=== PATIENT | male | born 1975 | race Caucasian/White ===

== ENCOUNTER 2021-01-29 10:40 | Emergency (ER) | payer OTHER, SELFPAY ==
--- NOTE | ~2021-01-29 | XR_ITS ---
EXAMINATION: XR chest 2V EXAM DATE: 01/29/2021 11:06 INDICATION: Midsternal left-sided chest pain. TECHNIQUE: Frontal and lateral projections of the chest obtained and reviewed. Comparison is made to prior examination from 2006. FINDINGS: The lungs are clear. There are no pleural effusions. The cardiomediastinal silhouette is within normal limits. There is no pneumothorax suspected. The bones and soft tissues are unremarkab le. IMPRESSION: No acute cardiopulmonary findings. Reviewed, dictated and finalized at location A.
--- NOTE | 2021-01-29 10:42 | ECG_ITS ---
Measurements Intervals [place] Rate: 78 P: 12 WA: 187 QRS: -18 QRSD: 145 T: 2 QT: 381 QTc: 436 Interpretive Statements SINUS RHYTHM RIGHT BUNDLE BRANCH BLOCK BASELINE ARTIFACT- V5-V6 ABNORMAL ECG Electronically Signed On 01-29-2021 10:48:26 CDT by Chris Martinez D.O.
[2021-01-29 11:02] LABS: Basophils Absolute Auto 0.1 K/mm3 (0.0-0.1); Basophils Percent Auto 0.7 % (0.2-1.2); Eosinophils Absolute Auto 0.1 K/mm3 (0-0.3); Hematocrit 49.2 % (42.0-52.0); Hemoglobin 16.2 g/dL (14.0-18.0); Immature Granulocyte Absolute 0.02 K/mm3 (0.00-0.031); Immature Granulocyte Percent A 0.3 % (0-0.5); Lymphocytes Absolute Auto 2.25 K/mm3 (0.9-3.2); Mean Corpuscular HGB Conc 32.9 g/dl (32-36); Mean Corpuscular Hemoglobin 29.2 pg (26-34); Mean Corpuscular Volume 88.6 fl (80-100); Mean Platelet Volume 10.2 fl (7.4-10.4); Monocytes Absolute Auto 0.7 K/mm3 (0.1-0.6); Monocytes Percent Auto 9.5 % (2.6-8.5); Neutrophils Absolute Auto 3.9 K/mm3 (1.3-6.7); Neutrophils Percent Auto 55.5 % (45.5-73.1); Platelet Count Result 236 k/mm3 (150-375); Red Blood Count 5.55 M/mm3 (4.6-6.20); Red Cell Distribution Width 12.9 % (11.5-14.5)
[2021-01-29 11:11] LABS: Anion Gap 10 mmol/L (8-16); Blood Urea Nitrogen 14 mg/dL (9-20); Calcium 9.6 mg/dL (8.4-10.2); Carbon Dioxide 27 mmol/L (22-30); Chloride 105 mmol/L (98-107); Estimated Glomerular Filt Rate > 60; Glucose 101 mg/dL (65-110); Potassium 4.2 mmol/L (3.4-5.0); Sodium 142 mmol/L (137-145)
[2021-01-29 11:14] LABS: INR 0.9; Prothrombin Time 12.2 Seconds (11.1-14.7)
[2021-01-29 11:15] LABS: Partial Thromboplastin Time 26.6 SECONDS (22.3-36.8)
[2021-01-29 11:22] LABS: Troponin I < 0.012 ng/mL (0.000-0.034)
[2021-01-29 11:54] VITALS: BP 165/89; PULSE 73; RESP 17; TEMP 36.2; O2SAT 100
--- NOTE | 2021-01-29 14:27 | ED.GENADULT ---
HPI - General Adult General Chief complaint: Chest Pain Stated complaint: Chest Pain Time Seen by Provider: 01/29/21 14:25 Source: patient Mode of arrival: ambulatory Limitations: no limitations History of Present Illness HPI narrative: Patient is here for evaluation of left-sided upper sternal and shoulder pain. He states that he has had this in the past his states that this seems to happen every time I try to work out and he did just recently start working out again. He takes some Tylenol or ibuprofen for the pain with minimal relief. He is not having any pain right now. There is no history of heart disease in him or anyone young in his family. There are some history with his mother and aunt that have valve disease. Onset (ago): week(s) Associated symptoms: denies other symptoms Related Data Home Medications Medication Instructions Recorded Confirmed ibuprofen 200 mg tablet 200 mg PO Q6H PRN 11/23/19 01/29/21 Allergies Allergy/AdvReac Type Severity Reaction Status Date / Time ciprofloxacin Allergy Unknown tendonitis Verified 01/29/21 14:50 Review of Systems Review of Systems: All systems reviewed & are unremarkable except as noted in HPI and below [facility] Past Medical History Medical History (Updated 01/29/21 @ 15:17 by Christianne Aleman PA-C) Diverticulitis (~12/2018) Gout Hypothyroid Kidney stone (~06/2018) Surgical History Surgical History History of nasal septoplasty (~2014) Family History Family History Mother Acute myocardial infarction Social History Social History (Updated 01/29/21 @ 15:13 by Christianne Aleman PA-C) Smoking status: Never smoker Alcohol intake: current Substance use: never Living arrangements: with family 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: occupation 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 Exam Const: General: no acute distress and alert Orientation/consciousness: patient oriented x3 Eyes: Conjunctivae: conjunctivae normal Pupils: Equal, round and reactive pupils present Resp: Effort & Inspection: normal respiratory effort Auscultation: clear to auscultation bilaterally Cardio: Rate: regular rate Rhythm: regular rhythm Other: no murmur GI: GI Palp: Yes Soft to palpation Skin: General skin exam: normal color (dry) Neuro: General: patient oriented x3 Extrem: General: normal to inspection Left upper extremity: normal to inspection, full ROM and shoulder/upper arm (mild click with rotation, no grinding.) normal ROM Psych: Mental Status: mental status grossly normal Course Course Emergency Course: Labs reviewed with patient, there is no cause for his chest pain identified here today. Recommend that he follow-up with his primary care physician for possible referral for a stress test if he is still concerned. Vital Signs Vital signs: Vital Signs Temperature 36.2 C L 01/29/21 11:54 Pulse Rate 73 01/29/21 11:54 Respiratory Rate 17 01/29/21 11:54 Blood Pressure 165/89 H 01/29/21 11:54 Pulse Oximetry 100 01/29/21 11:54 Temperature 36.2 C L 01/29/21 11:54 Pulse Rate 73 01/29/21 11:54 Respiratory Rate 17 01/29/21 11:54 Blood Pressure 165/89 H 01/29/21 11:54 Pulse Oximetry 01/29/21 11:54 Medical Decision Making Vital Signs Vital Signs: Vital Signs Temperature 36.2 C L 01/29/21 11:54 Pulse Rate 73 01/29/21 11:54 Respiratory Rate 17 01/29/21 11:54 Blood Pressure 165/89 H 01/29/21 11:54 Pulse Oximetry 100 01/29/21 11:54 Temperature 36.2 C L 01/29/21 11:54 Pulse Rate 73 01/29/21 11:54 Respiratory Rate 17 01/29/21 11:54 Blood Pressure 165/89 H 01/29/21 11:54 Pulse Oximetry 01/29/21 11:54 Lab Data Result diagrams: 01/29/21 10:53 01/29/21 10:53 Labs: Lab Results 01/29/21 01/29/21 01/29/21 Range/Units 10:53 10:53 10:5
[2021-01-29 14:44] VITALS: BP 130/87; PULSE 71; RESP 12; TEMP 36.6; O2SAT 94
[2021-01-29 14:51] VITALS: PULSE 70; O2SAT 96
[2021-01-29 14:53] LABS: Troponin I < 0.012 ng/mL (0.000-0.034)
[2021-01-29 15:38] VITALS: BP 148/87; PULSE 72; RESP 13; O2SAT 96
== END 2021-01-29 15:39 | disposition home or self-care (01) ==
PROVIDERS: Emergency Provider Emergency Medicine; PCP Family Medicine
DX: S46.912A Strain of unspecified muscle, fascia and tendon at shoulder and upper arm level, left arm, initial encounter (principal); M10.9 Gout, unspecified; E03.9 Hypothyroidism, unspecified; Z87.442 Personal history of urinary calculi; X58.XXXA Exposure to other specified factors, initial encounter
CPT/HCPCS: 36415; 71046; 80048; 84484; 85025; 85610; 85730; 93005; 99284

== ENCOUNTER 2021-06-19 13:54 | Emergency (ER) | payer OTHER, SELFPAY ==
[2021-06-19 13:59] VITALS: BP 136/86; PULSE 86; RESP 20; TEMP 36.3; O2SAT 100
--- NOTE | 2021-06-19 14:13 | ED.EAR ---
HPI - Ear Problem General Chief complaint: Ear Stated complaint: Left ear pain Time Seen by Provider: 06/19/21 14:18 Source: patient Mode of arrival: ambulatory Limitations: no limitations History of Present Illness HPI Narrative: 46-year-old male presented for complaint of left ear pain for 1 week. Endorses associated sinus pressure and congestion and swollen glands to the left neck. He denies associated dizziness, tinnitus, or decreased hearing, or photophobia. Has been taking Claritin and ibuprofen with minimal relief. He is vaccinated for COVID and denies sick contacts. MD Complaint: ear pain Related Data Home Medications Medication Instructions Recorded Confirmed ibuprofen 200 mg tablet 200 mg PO Q6H PRN 11/23/19 03/01/21 Allergies Allergy/AdvReac Type Severity Reaction Status Date / Time ciprofloxacin Allergy Unknown tendonitis Verified 03/01/21 08:57 Review of Systems Review of Systems: CONSTITUTIONAL: Denies malaise, chills, or fever. EYES: Denies visual changes, redness, or discharge. ENT: Reports ear pain, rhinorrhea, congestion, sinus pain CARDIOVASCULAR: Denies chest pain, palpitations, or edema. RESPIRATORY: Denies cough or dyspnea. GASTROINTESTINAL: Denies abdominal pain, nausea, vomiting, diarrhea SKIN: Denies rash or itching. MUSCULOSKELETAL: Denies myalgia. NEUROLOGIC: Denies headache. 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 There is no relevant family history pertinent to the presenting complaint Exam Narrative: GENERAL: Well-appearing, well-nourished, and in no acute distress. HEAD: Normocephalic EYES: PERRLA, conjunctivae clear ENT: Nares clear. Mucous membranes moist. TM pearly solis with dull light reflex bilaterally with fluid; no bulging or erythema, no tragal tenderness. Oropharynx not erythematous without lesions. Tonsils not enlarged and without exudate, no drooling, no hoarseness, no trismus, uvula midline. NECK: Supple. No lymphadenopathy CHEST: Clear to auscultation, breath sounds equal. No wheezing, rhonchi, rales, or stridor. No respiratory distress, speaks in full sentences. HEART: Regular rate and rhythm. No murmur heard. SKIN: Warm, dry, no rash. NEURO: Alert and oriented x3. PSYCH: Normal mood and affect Course Course Emergency Course: Patient is aware of diagnosis, understands and agrees to treatment plan. Abx for worsening sx if pt cannot be seen by pcp timely. Anticipatory guidance given. Patient agrees to follow-up as directed and is aware of reasons to seek care at the emergency department. Portions of this record may have been created with voice recognition software Level of Care: Express Care Visit Vital Signs Vital signs: Vital Signs Temperature 97.4 F L 06/19/21 13:59 Pulse Rate 86 06/19/21 13:59 Respiratory Rate 20 06/19/21 13:59 Blood Pressure 136/86 06/19/21 13:59 Pulse Oximetry 100 06/19/21 13:59 Temperature 97.4 F L 06/19/21 13:59 Pulse Rate 86 06/19/21 13:59 Respiratory Rate 20 06/19/21 13:59 Blood Pressure 136/86 06/19/21 13:59 Pulse Oximetry 100 06/19/21 13:59 Reviewed Medical Decision Making MDM Narrative Medical decision chrissie
== END 2021-06-19 14:27 | disposition home or self-care (01) ==
PROVIDERS: Emergency Provider Nurse Practitioner Family; PCP Family Medicine
DX: H92.02 Otalgia, left ear (principal); E78.5 Hyperlipidemia, unspecified; E03.9 Hypothyroidism, unspecified; M10.9 Gout, unspecified
CPT/HCPCS: 99213; G0463

== ENCOUNTER 2022-01-20 15:15 | Emergency (ER) | payer OTHER, SELFPAY ==
--- NOTE | ~2022-01-20 | XR_ITS ---
EXAM: XR abdomen/kub 1V DATE: 01/20/2022 18:05 HISTORY: nephrolithiasis . COMPARISON: CT abdomen and pelvis, same date. FINDINGS: Clear lung bases. Normal bowel gas pattern. No organomegaly. Redemonstration of the 12 mm right UPJ and 10 mm right proximal ureteral stones, unchanged given interval difference in technique. Multiple bilateral nephroliths. Contrast in the collecting system. Regional bones and soft tissues n ormal for age. IMPRESSION: Stable right ureteral stones. Bilateral nephrolithiasis, heavy stone burden. Reviewed, dictated and finalized at location K. IMPRESSION: Stable right ureteral stones. Bilateral nephrolithiasis, heavy ston e burden.
--- NOTE | ~2022-01-20 | CT_ITS ---
EXAMINATION: CT abdomen pelvis w con DATE: 01/20/2022 16:08 INDICATION: RLQ pain TECHNIQUE: Computed tomography (CT) of the abdomen and pelvis was performed with 100 mL Omnipaque-350 intravenous contrast. Automated exposure control and iterative reconstruction technique were employe d. The dose-length product was 1708.42 mGy-cm. COMPARISON: 12/17/2018. FINDINGS: Lower thorax: Unremarkable Liver: Normal. Biliary/Gallbladder: Gallbladder is normal. No bile duct dilation. Pancreas: No mass or duct dilation. Fatty infiltrated. Spleen: Normal. Adrenals:No mass. Kidneys: 7 x 9 mm right UPJ stone. 6 x 8 mm right proximal ureteral stone. Mild right pelviectasis an d caliectasis, with mild inflammatory stranding. Multiple bilateral nonobstructive renal calculi. No suspicious renal mass. GI tract: No small or large bowel dilation. Normal appendix. Diverticulosis without diverticulitis. Mesentery/Peritoneum: No ascites, mass, or free air. Retroperitoneum: No mass. Pelvis: Pelvic organs are within normal limits. Soft Tissues: Soft tissues and body wall unremarkable. Bones: No acute osseous finding. IMPRESSION: 7 x 9 right UPJ and 6 x 8 right proximal ureteral stones causing mild right obstructive uropathy. Reviewed, dictated and finalized at location K. IMPRESSION: 7 x 9 right UPJ and 6 x 8 right proximal ureteral stones causing mild right obs tructive uropathy.
[2022-01-20 15:20] VITALS: BP 154/101; PULSE 75; RESP 16; TEMP 36.7; O2SAT 97
--- NOTE | 2022-01-20 15:27 | ED.ABDPAIN ---
HPI - Abdominal Pain General Chief Complaint: Abdominal Pain Stated Complaint: ABD PAIN Time Seen by Provider: 01/20/22 15:27 History of Present Illness HPI narrative: Patient is a 46-year-old male with a history of gout, hypothyroidism presenting with abdominal pain. Patient states that he has had generalized abdominal discomfort for the last week associated with constipation. He called his PCP who recommended stool softeners. States that this helped and he was able to have a bowel movement yesterday. Around the same time he developed right lower quadrant pain that has continued. States he has been nauseated with decreased appetite. No vomiting or diarrhea. Endorses some discomfort with urination. Denies headache, chest pain, shortness of breath, cough, back pain, leg swelling. Related Data Home Medications Medication Instructions Recorded Confirmed ibuprofen 200 mg tablet (Advil) 200 mg PO Q6H PRN 11/23/19 01/15/22 Allergies Allergy/AdvReac Type Severity Reaction Status Date / Time No Known Allergies Allergy Verified 01/20/22 15:15 Review of Systems Review of Systems: All systems reviewed & are unremarkable except as noted in HPI and below PMFSH Past Medical History Medical History Diverticulitis (~12/2018) Dyslipidemia Gout Hypothyroid Kidney stone (~06/2018) Surgical History Surgical History History of nasal septoplasty (~2014) Family History Family History Mother Acute myocardial infarction Social History Social History Smoking status: Never smoker Alcohol intake: current Substance use: never Substance use type: does not use 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 HEAD: Normocephalic, atraumatic. EYES: PERRLA and EOMI. ENT: Nares clear, no rhinorrhea or epistaxis. Mucous membranes moist. NECK: Supple. CHEST: Clear to auscultation. No respiratory distress. HEART: Regular rate and rhythm. No murmur heard. Normal peripheral pulses. ABDOMEN: Soft, +tender RLQ, nondistended, normal active bowel sounds. EXTREMITIES: Normal range of motion. No edema. SKIN: Warm, dry, no rash. NEURO: No focal deficits. Alert and oriented x3. PSYCH: Normal mood and affect. Course Vital Signs Vital signs: Vital Signs Temperature 98.1 F 01/20/22 15:20 Pulse Rate 75 01/20/22 15:20 Respiratory Rate 16 01/20/22 15:20 Blood Pressure 154/101 H 01/20/22 15:20 Pulse Oximetry 97 01/20/22 15:20 Oxygen Delivery Room Air 01/20/22 15:20 Temperature 98.1 F 01/20/22 15:20 Pulse Rate 62 01/20/22 19:27 Respiratory Rate 17 01/20/22 19:27 Blood Pressure 131/81 01/20/22 19:27 Pulse Oximetry 100 01/20/22 19:27 Oxygen Delivery Room Air 01/20/22 15:20 MDM - Abdominal Pain MDM Narrative Medical decision making narrative: Patient is a 46-year-old male with history as above presenting with right lower quadrant pain. Patient is hypertensive, his vitals are within normal limits. Exam remarkable for right lower quadrant tenderness. CT abdomen pelvis shows 2 right-sided ureteral stones. UA with blood but does not appear infected. I spoke with Dr. Patel with urology who recommends outpatient follow-up as long as the patient's symptoms are well controlled. Currently, the patient states that he feels well enough to go home. We will provide pain medicine and Zofran. Dr. Patel's office will call the patient tomorrow or Friday to schedule follow-up. Appropriate return precautions were given. Patient voiced understanding and is agreeable with plan. Discharged in stable
[2022-01-20 15:37] LABS: Basophils Absolute Auto 0.1 K/mm3 (0.0-0.1); Eosinophils Absolute Auto 0.2 K/mm3 (0-0.3); Eosinophils Percent Auto 2.3 % (0-4.4); Hematocrit 47.8 % (42.0-52.0); Hemoglobin 15.9 g/dL (14.0-18.0); Immature Granulocyte Absolute 0.02 K/mm3 (0.00-0.031); Immature Granulocyte Percent A 0.2 % (0-0.5); Lymphocytes Absolute Auto 2.53 K/mm3 (0.9-3.2); Lymphocytes Percent Auto 28.6 % (18.3-44.2); Mean Corpuscular HGB Conc 33.3 g/dl (32-36); Mean Corpuscular Hemoglobin 29.8 pg (26-34); Mean Corpuscular Volume 89.7 fl (80-100); Mean Platelet Volume 10.6 fl (7.4-10.4); Monocytes Absolute Auto 0.9 K/mm3 (0.1-0.6); Monocytes Percent Auto 10.2 % (2.6-8.5); Neutrophils Absolute Auto 5.1 K/mm3 (1.3-6.7); Neutrophils Percent Auto 57.7 % (45.5-73.1); Platelet Count Result 239 k/mm3 (150-375); Red Blood Count 5.33 M/mm3 (4.6-6.20); Red Cell Distribution Width 13.2 % (11.5-14.5); White Blood Count 8.9 K/mm3 (4.5-10.0)
[2022-01-20 15:43] LABS: Alanine Aminotransferase 31 U/L (6-50); Albumin Level 4.5 g/dL (3.5-5.1); Alkaline Phosphatase 77 U/L (38-126); Anion Gap 12 mmol/L (8-16); Aspartate Amino Transferase 34 U/L (17-59); Bilirubin,Total 1.2 mg/dL (0.2-1.3); Blood Urea Nitrogen 16 mg/dL (9-20); Calcium 9.2 mg/dL (8.4-10.2); Carbon Dioxide 26 mmol/L (22-30); Chloride 101 mmol/L (98-107); Estimated CRCL calculation 79 ml/min; Estimated Glomerular Filt Rate 51; Glucose 99 mg/dL (65-110); Lipase 209 U/L (23-300); Potassium 4.1 mmol/L (3.4-5.0); Sodium 139 mmol/L (137-145)
[2022-01-20] MEDS: ONDANSETRON INJ 4 MG/2 ML VIAL IV PUSH (16:14)
[2022-01-20] MEDS: SODIUM CHLORIDE 0.9% IV 1,000 ML 999 ML IV CONT (16:15)
[2022-01-20 17:11] LABS: Appearance Urine Clear (Clear); Bilirubin Urine Negative (Negative); Blood Urine 3+ (Negative); Color Urine Yellow (Yellow); Glucose Urine UA Negative (Negative); Ketones Urine Negative (Negative); Leukocyte Esterase Ur Trace LEU/UL (Negative); Nitrate Urine Negative (Negative); Protein Urine Negative (Negative); Specific Grav Ur <= 1.005 (1.001-1.035); Urobilinogen Urine 0.2 mg/dL (<2.0)
[2022-01-20 17:16] LABS: Add Urine Microscopic? YES; Mucus Urine Rare /lpf; WBC Urine 0-3 /hpf
[2022-01-20 19:27] VITALS: BP 131/81; PULSE 62; RESP 17; O2SAT 100
== END 2022-01-20 19:35 | disposition home or self-care (01) ==
PROVIDERS: Emergency Provider Emergency Medicine; PCP Family Medicine
DX: N13.9 Obstructive and reflux uropathy, unspecified (principal); N20.1 Calculus of ureter; E78.5 Hyperlipidemia, unspecified; E03.9 Hypothyroidism, unspecified; M10.9 Gout, unspecified; Z87.442 Personal history of urinary calculi
CPT/HCPCS: 36415; 74018; 74177; 80053; 81001; 83690; 85025; 96361; 96374; 99284; J2405; J7030; Q9967

== ENCOUNTER 2022-01-22 09:01 | Outpatient (CLI) | payer OTHER, SELFPAY ==
[2022-01-22 10:08] LABS: Prothrombin Time 13.1 Seconds (11.1-14.7)
[2022-01-22 10:09] LABS: Partial Thromboplastin Time 29.6 SECONDS (22.3-36.8)
== END 2022-01-22 09:02 | disposition home or self-care (01) ==
LOC: ANHSURGERY 09:09
PROVIDERS: PCP Family Medicine; Visit Provider Urology
DX: Z01.812 Encounter for preprocedural laboratory examination (principal); N20.0 Calculus of kidney
CPT/HCPCS: 36415; 85610; 85730; 87086

== ENCOUNTER 2022-01-25 00:45 | Day surgery (SDC) | payer OTHER, SELFPAY ==
[2022-01-21 13:15] VITALS: BMI 36.9
--- NOTE | 2022-01-21 13:23 | PC.NURSE ---
Report to the Outpatient Waiting Room, entrance under the green pavilion located off [facility], at time 12:00 on date 01/25/22. OR Time: 2:00. Time changes happen often and if your time is changed the preop area will call you the afternoon before. - You and your visitor will be asked to self-screen and do not enter if you have any COVID symptoms. - Only one visitor and NO children visitors are allowed at this time. - The patient visitor is requested to leave or wait in car when not with patient due to restrictions. - A mask is required within the hospital. Patients may have clear liquids (water, carbonated beverages, clear teas, apple juice) until 3 hours prior to surgery (11:00) with a maximum of 20 ounces. - No food from midnight until time of surgery Take the following medications with a SIP of water the morning of surgery: PAIN PILL IF NEEDED Medications to discontinue per physician: IBUPROFEN Date to take last dose: STOPPED 01/20/22 Please no make-up, nail bulgarian, hairspray, perfume, deodorant, or body powder the day of surgery. No jewelry (including any body piercings) or valuables the day of surgery, leave them at home. Please take a shower or bath the night before, or the morning of, surgery with an antibacterial soap. Wear comfortable, loose fitting clothing. - Jewelry must be removed prior to entering the operating room. Rings and piercings that are not removed may be cut off. - The hospital will not accept responsibility for valuables. - Please leave all valuables, including medications, at home the day of surgery. If you are going home after surgery, a licensed trailer truck driver must drive you home. - NO public transportation without another adult. - We recommend that an adult stay with you for 24 hours following discharge. - We also recommend that you do not drive, make important decision, drink alcoholic beverages, or take any drugs that were not prescribed by your health care provider for at least 24 hours after your discharge time. Follow any additional instructions given to you from your surgeon. If you or anyone in your household have experienced Covid symptoms in the past week, please notify your surgeon or the nurse liaison at the phone number below for possible testing. Telephone instructions given to PT - JACIEL HENAO and asked if any additional questions and then verbalized understanding. Patient advised to call surgeon office or pre surgery nurse liaison [phone] if any additional questions.
[2022-01-25] VITALS (7 sets, daily range): BP systolic 117–136; BP diastolic 71–90; PULSE 65–75; RESP 12–16; TEMP 36.3–36.4; O2SAT 97–100
--- NOTE | ~2022-01-25 | XR_ITS ---
EXAMINATION: XR abdomen/kub 1V DATE: 01/25/2022 10:25 INDICATION: Kidney stones. TECHNIQUE: A supine view of the abdomen on 2 radiographs was obtained. COMPARISON: CT abdomen and pelvis 01/20/2022 FINDINGS: There are stones in each kidney measuring up to 7 mm on the left. There are 2 stones in pro ximal right ureter measuring up to 6 x 8 mm. There are no dilated loops of bowel. IMPRESSION: 1. Stones in the kidneys and proximal right ureter. Reviewed, dictated and finalized at location A.
--- NOTE | 2022-01-25 06:27 | WPDHPUPDATE1 ---
History and Physical Update Update Date/Time: 01/25/22 06:27 History and Physical has been reviewed, including an updated exam of the patient. There are NO changes in the patient's condition. Risks, benefits, and alternatives have been discussed and questions answered. Patient agrees to proceed with procedure.
--- NOTE | 2022-01-25 09:02 | P.PNAN_ITS ---
Anes - Initial Pre Proc Eval Procedure: Operation Date: 01/25/22 13:00 Proposed Procedures p Right Extracorporeal Shock Wave Lithotripsy - Gerardo Lee MD Date/Time: 01/25/22 09:02 Surgeon: Gerardo Lee MD Pre Op Diagnosis: kidney stones Patient Data Age: 46 Gender: M Height: 1.85 m Weight: 127 kg Allergies Allergy/AdvReac Type Severity Reaction Status Date / Time No Known Allergies Allergy Verified 01/25/22 10:49 Home Medications Medication Instructions Recorded Confirmed Type ibuprofen 200 mg tablet (Advil) 200 mg PO Q6H PRN Pain 11/23/19 01/21/22 History allopurinol 300 mg tablet 300 mg PO DAILY #90 tabs 12/03/21 01/21/22 Rx levothyroxine 175 mcg tablet 175 mcg PO DAILY #90 tabs 12/03/21 01/21/22 Rx hydrocodone 5 mg-acetaminophen 325 1 tablet PO Q8H PRN pain #5 tabs 01/20/22 01/21/22 Rx mg tablet ondansetron 4 mg disintegrating 4 mg PO Q8H PRN nausea and 01/20/22 01/21/22 Rx tablet vomiting #20 tabs Patient hx anesthesia problems: none Family hx anesthesia problems: none Results Review: All pre-operative results and documents have been reviewed as part of the pre- operative evaluation. 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 Informed Consent: The patient's anesthetic plan and its attendant risks and benefits were discussed with the patient/family/POA. Questions were solicited and answers provided to the satisfaction of the patient/family/POA.
[2022-01-25] MEDS: LACTATED RINGERS 1,000 ML 30 ML IV CONT (10:58)
[2022-01-25] MEDS: ceFAZolin 3 GM/D5W 100 ML 100 ML IVPB (12:39)
--- NOTE | 2022-01-25 13:10 | W.PM.PROC2 ---
Procedure Note - Detailed Date of Procedure 01/25/22 Pre-op Diagnosis Right ureteral stones Post-op Diagnosis Same Procedure Performed Cysto, right ureteral stent placment and right ESWL Surgeon Gerardo Lee MD Description of Procedure The patient was brought to the operative suite where he was placed in the supine position on the Dornier lithotripter table. Flexible cystoscopy was undertaken with a 16F flexible cystoscopy. There were no urethral strictures. The prostatic urethra estimated length was 1.5cm. There was mild obstruction of the prostatic urethra with no median lobe enlargement. The bladder mucosa was normal and there was a single, orthotopic ureteral orifice bilaterally. A 0.035 glidewire was advanced into the right renal pelvis under fluoroscopy. A 4.8F J-J ureteral stent was positioned with the proximal coil in the renal pelvis and the distal coil in the bladder. The patient was then repositioned in the supine position with the focal point of the lithotriptor on two, contiguoius right proximal ureteral stones, each measuring 8mm. A total of 3000 shocks were delivered at a power setting of 6. There appeared to be good fragmentation of the stone. The patient tolerated the procedure well and was taken to the recovery room in good condition. Drains No Packing No Pathology None sent Complications No immediate complications Condition Stable
[2022-01-25] MEDS: LIDOCAINE HCL 2% GEL UROJET 10 ML PKG MUCOUS MEM (13:14)
[2022-01-25] MEDS: oxyCODONE HCL (*CRX) 5 MG TAB IR PO (14:45)
[2022-01-25] MEDS: fentaNYL CITRATE INJ (*CRX) 100 MCG/2 ML VIAL 25 MCG IV PUSH (14:46)
--- NOTE | 2022-01-25 14:54 | SUR.PHASEII ---
pt c/o increase pain in penis region after voiding.
--- NOTE | 2022-01-25 15:29 | SUR.PHASEII ---
pt meets discharge criteria and is waiting on his ride
== END 2022-01-25 15:40 | disposition home or self-care (01) ==
PROVIDERS: PCP Family Medicine; Visit Provider Urology
PROC: (CPT 50590; principal; 2022-01-25 13:00)
DX: N20.1 Calculus of ureter (principal); I10 Essential (primary) hypertension; E03.9 Hypothyroidism, unspecified; E78.5 Hyperlipidemia, unspecified; M10.9 Gout, unspecified; E66.9 Obesity, unspecified; Z68.37 Body mass index [BMI] 37.0-37.9, adult
CPT/HCPCS: 52332; 50590; 36415; 74018; 85610; 85730; 87086; A9270; C1769; C1887; C2617; J0690; J1100; J2250; J2405; J2704; J3010; J7120

== ENCOUNTER 2022-02-07 15:41 | Outpatient (CLI) | payer OTHER, SELFPAY ==
--- NOTE | ~2022-02-07 | XR_ITS ---
XR abdomen/kub 1V 02/07/2022 15:56 Indication: Renal and ureteral stones Procedure: KUB Comparison: 01/25/2022 Findings: There are bilateral renal stones. There is a right internal ureteral stent in expected posi tion. There are 2 stones near the expected location of the UPJ. There is a larger stone in the right ureter at the L3 level measuringr 8 mm. Bowel gas pattern nonobstructive. No acute osseous abnormalit y. Impression: 1: Bilateral renal and right ureteral stones. Right internal ureteral stent in expected position. Reviewed, dictated and finalized at location A. Impression: 1: Bilateral renal and right ureteral stones. Right internal ureteral stent in expected position.
== END 2022-02-07 15:42 | disposition home or self-care (01) ==
PROVIDERS: PCP Family Medicine; Visit Provider Urology
DX: Z01.818 Encounter for other preprocedural examination (principal); Z20.1 Contact with and (suspected) exposure to tuberculosis
CPT/HCPCS: 74018

== ENCOUNTER 2022-02-15 13:25 | Outpatient (CLI) | payer OTHER, SELFPAY ==
--- NOTE | ~2022-02-15 | XR_ITS ---
EXAMINATION: XR abdomen/kub 1V INDICATION: Calcium kidney stone TECHNIQUE: Supine views of the abdomen were obtained on 2 radiographs. COMPARISON: 02/07/2022 FINDINGS: A right internal ureteral stent is in expected position. There is a 5 mm stone in the right kidney. Three stones are again seen adjacent to the right internal ureteral. Two previously projecti ng at the level of the right L2 transverse process now projecting at the level of the L3 transverse p rocess. One unchanged stone is seen just caudal to the right L3 transverse process. Stones measuring 5 mm, 4 mm, and 3 mm are seen in the left kidney without significant change. Also noted are punctate left kidney stones. No stones are identified in the bladder. The bowel gas pattern is normal. IMPRESSION: 1. Right internal ureteral stent in expected position with stones adjacent to the stent. 2. Bilateral nephrolithiasis. Reviewed, dictated and finalized at location F. IMPRESSION: 1. Right internal ureteral stent in expected position with stones adjacent to t he stent. 2. Bilateral nephrolithiasis.
== END 2022-02-15 13:26 | disposition home or self-care (01) ==
PROVIDERS: PCP Family Medicine; Visit Provider Urology
DX: N20.0 Calculus of kidney (principal)
CPT/HCPCS: 74018

== ENCOUNTER 2022-02-21 14:36 | Outpatient (CLI) | payer OTHER, SELFPAY ==
--- NOTE | 2022-02-21 14:46 | ECG_ITS ---
Measurements Intervals Victor Rate: 73 P: 12 NJ: 202 QRS: -11 QRSD: 151 T: 6 QT: 400 QTc: 441 Interpretive Statements SINUS RHYTHM RIGHT BUNDLE BRANCH BLOCK [120+ ms QRS DURATION, UPRIGHT V1, 40+ ms S IN I/aVL/V4/V5/V6] ABNORMAL ECG COMPARED TO ECG 01/29/2021 10:45:33 NO SIGNIFICANT CHANGES Electronically Signed On 02-21-2022 15:03:10 CDT by Moisés Peterson M.D.
[2022-02-21 15:08] LABS: Add Urine Microscopic? YES; Appearance Urine Clear (Clear); Bacteria Urine Trace /hpf; Bilirubin Urine Negative (Negative); Blood Urine 3+ (Negative); Color Urine Yellow (Yellow); Glucose Urine UA Negative (Negative); Ketones Urine Negative (Negative); Leukocyte Esterase Ur 1+ LEU/UL (Negative); Mucus Urine Rare /lpf; Nitrate Urine Negative (Negative); Protein Urine Negative (Negative); Specific Grav Ur 1.005 (1.001-1.035); Urobilinogen Urine Negative mg/dL (<2.0); WBC Urine 0-3 /hpf
[2022-02-21 15:13] LABS: INR 1.1; Prothrombin Time 13.6 Seconds (11.1-14.7)
[2022-02-21 15:14] LABS: Partial Thromboplastin Time 33.4 SECONDS (22.3-36.8)
== END 2022-02-21 14:37 | disposition home or self-care (01) ==
LOC: ANHSURGERY 14:41
PROVIDERS: PCP Family Medicine; Visit Provider Urology
DX: Z01.818 Encounter for other preprocedural examination (principal); I10 Essential (primary) hypertension; N20.0 Calculus of kidney; R94.31 Abnormal electrocardiogram [ECG] [EKG]
CPT/HCPCS: 36415; 81001; 85610; 85730; 93005

== ENCOUNTER 2022-02-22 01:15 | Day surgery (SDC) | payer OTHER, SELFPAY ==
--- NOTE | 2022-02-21 06:53 | P.HP_ITS ---
History of Present Illness History of Present Illness Consent: Risks, benefits, and alternatives have been discussed and questions answered. Patient agrees to proceed with procedure. Chief complaint: right uretral stones Narrative: Zach Loomis is a 46 year old male Was in the ER at [facility] approximately 1 month ago with right flank pain. Imaging demonstrated a 9 mm right UPJ calculus. After discussion of options including ureteroscopy laser lithotripsy and ESWL we have elected for the latter. He is aware the risk including, but not limited to, residual fragments that may require additional intervention, postoperative hematuria, a renal injury and perinephric hematoma. Review of Systems Cardiovascular: Cardiovascular: Denies chest pain, Denies lightheadedness, Denies palpitations and Denies dyspnea Respiratory: Respiratory: Denies dyspnea Gastrointestinal: Gastrointestinal: Denies diarrhea, Denies nausea and Denies vomiting Genitourinary: Genitourinary: Denies hematuria and Denies dysuria Endocrine: Endocrine: Denies palpitations PMFSH Past Medical History Medical History (Updated 02/21/22 @ 06:55 by Gerardo Lee MD) Diverticulitis (~12/2018) Dyslipidemia Gout HTN (hypertension) Hypothyroid Kidney stone (~06/2018) Surgical History Surgical History History of nasal septoplasty (~2014) Family History Family History Mother Acute myocardial infarction Social History Social History Smoking status: Never smoker Alcohol intake: never Substance use: never Substance use type: does not use 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 Gender identity (if verbalized by the patient): Male Sexual Orientation (if Verbalized by the Patient): Straight or Heterosexual Spiritual care concerns: No Agree to blood products: Yes Meds Home Medications and Allergies Home Medications Medication Instructions Recorded Confirmed Type ibuprofen 200 mg tablet (Advil) 200 mg PO Q6H PRN Pain 11/23/19 01/25/22 History allopurinol 300 mg tablet 300 mg PO DAILY #90 tabs 12/03/21 01/25/22 Rx levothyroxine 175 mcg tablet 175 mcg PO DAILY #90 tabs 12/03/21 01/25/22 Rx hydrocodone 5 mg-acetaminophen 325 1 tablet PO Q8H PRN pain #5 tabs 01/20/22 01/25/22 Rx mg tablet ondansetron 4 mg disintegrating 4 mg PO Q8H PRN nausea and 01/20/22 01/25/22 Rx tablet vomiting #20 tabs cephalexin 500 mg capsule 500 mg PO Q8H #9 caps 01/25/22 Rx hydrocodone 5 mg-acetaminophen 325 1 - 2 tablet PO Q6H PRN pain #20 01/25/22 Rx mg tablet tabs Allergies Allergy/AdvReac Type Severity Reaction Status Date / Time No Known Allergies Allergy Verified 01/25/22 10:49 Exam Const: General: no acute distress Resp: Effort & Inspection: normal respiratory effort GI: Inspection: non-distended GI Palp: No abdominal tenderness and No Guarding due to palpation present (GI) Auscultation: normal bowel sounds Assessment and Plan Assessment and plan (1) Right renal stone: Code(s): N20.0 - Calculus of kidney Status: Acute Assessment and Plan: * Right ESWL
[2022-02-21 08:32] VITALS: BMI 36.3
--- NOTE | 2022-02-21 08:52 | PC.NURSE ---
Report to the Outpatient Waiting Room, entrance under the green pavilion located off [facility], at time __9:00AM on date __02/22/22 . Planned Procedure Time: __11:00AM . Time changes happen often and if your time is changed the preop area will call you the afternoon before. - You and your visitor will be asked to self-screen and do not enter if you have any COVID symptoms. - We encourage only one visitor and NO visitors under age 16 are allowed at this time. Your visitor will receive communication by the phone number that is given day of service. - The patient visitor is requested to social distance or may leave the building when not with patient due to restrictions. - A mask is required within the hospital. Patients may have clear liquids (water, carbonated beverages, clear teas, apple juice) until 3 hours prior to surgery with a maximum of 20 ounces. - No food from midnight until time of surgery Take the following medications with a SIP of water the morning of surgery: LEVOTHYROXINE, HYDROCODONE & ZOFRAN NEEDED___ Medications to discontinue per physician ___NONE Please no make-up, nail albanian, hairspray, perfume, deodorant, or body powder the day of surgery. No jewelry (including any body piercings) or valuables the day of surgery, leave them at home. Please take a shower or bath the night before, or the morning of, surgery with an antibacterial soap. Wear comfortable, loose fitting clothing. Children are encouraged to wear pajamas. - Jewelry must be removed prior to entering the operating room. Rings and piercings that are not removed may be cut off. - The hospital will not accept responsibility for valuables. - Please leave all valuables, including medications, at home the day of surgery. If you are going home after surgery, a licensed drivers license examiner must drive you home. - NO public transportation without another adult. - We recommend that an adult stay with you for 24 hours following discharge. - We also recommend that you do not drive, make important decision, drink alcoholic beverages, or take any drugs that were not prescribed by your health care provider for at least 24 hours after your discharge time. Follow any additional instructions given to you from your surgeon. If you or anyone in your household have experienced Covid symptoms in the past week, please notify your surgeon or the nurse liaison at the phone number below for possible testing. Telephone instructions given to ___PATIENT and asked if any additional questions and then verbalized understanding. Patient advised to call surgeon office or pre surgery nurse liaison [phone] if any additional questions.
--- NOTE | 2022-02-21 13:49 | WPDANESEPPF ---
Anes - Initial Pre Proc Eval Procedure: Operation Date: 02/22/22 11:00 Proposed Procedures p Right Extracorporeal Shock Wave Lithotripsy - Gerardo Lee MD Date/Time: 02/21/22 13:49 Surgeon: Gerardo Lee MD Pre Op Diagnosis: right uretral stones Patient Data Age: 46 Gender: M Height: 1.85 m Weight: 125 kg Allergies Allergy/AdvReac Type Severity Reaction Status Date / Time No Known Allergies Allergy Verified 02/22/22 10:06 Home Medications Medication Instructions Recorded Confirmed Type ibuprofen 200 mg tablet (Advil) 200 mg PO Q6H PRN Pain 11/23/19 02/22/22 History allopurinol 300 mg tablet 300 mg PO DAILY #90 tabs 12/03/21 02/22/22 Rx levothyroxine 175 mcg tablet 175 mcg PO DAILY #90 tabs 12/03/21 02/22/22 Rx ondansetron 4 mg disintegrating 4 mg PO Q8H PRN nausea and 01/20/22 02/22/22 Rx tablet vomiting #20 tabs hydrocodone 5 mg-acetaminophen 325 1 - 2 tablet PO Q6H PRN pain #20 01/25/22 02/22/22 Rx mg tablet tabs Patient hx anesthesia problems: none Family hx anesthesia problems: none Results Review: All pre-operative results and documents have been reviewed as part of the pre-operative evaluation. [facility] Past Medical History Medical History (Updated 02/21/22 @ 13:50 by Samuel Chase DO) Diverticulitis (~12/2018) Dyslipidemia Gout HTN (hypertension) Hypothyroid Kidney stone (~06/2018) Right bundle branch block Surgical History Surgical History History of nasal septoplasty (~2014) Family History Family History Mother Acute myocardial infarction Social History Social History Smoking status: Never smoker Alcohol intake: never Substance use: never Substance use type: does not use Living arrangements: with family Additional living arrangements comments: & CHILDREN 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 Gender identity (if verbalized by the patient): Male Sexual Orientation (if Verbalized by the Patient): Straight or Heterosexual Spiritual care concerns: No Agree to blood products: Yes Anes - Eval Final PreProcedure Day of Procedure 02/21/22 13:49 Patient weight: obese Heart: regular rate and rhythm Lungs: clear to auscultation Airway: Mallampati scale class II Neurological: alert and oriented Last oral intake: >/= 8 hours ASA classification: III Emergent: no Anesthetic plan: proceed Anesthesia type and monitoring: general LMA and standard monitoring Results Review: All pre-operative results and documents have been reviewed as part of the pre-operative evaluation. Informed Consent: The patient's anesthetic plan and its attendant risks and benefits were discussed with the patient/family/POA. Questions were solicited and answers provided to the satisfaction of the patient/family/POA.
[2022-02-22] VITALS (8 sets, daily range): BP systolic 118–141; BP diastolic 69–90; PULSE 78–90; RESP 12–20; TEMP 36–36.7; O2SAT 97–100
--- NOTE | ~2022-02-22 | XR_ITS ---
EXAMINATION: XR abdomen/kub 1V INDICATION: Urolithiasis TECHNIQUE: Supine views of the abdomen were obtained on 2 radiographs. COMPARISON: 02/15/2022 FINDINGS: A right internal ureteral stent is in expected position. There are three stones adjacent to the mid stent projecting between the right L3 and L4 transverse processes which measure up to 7 mm. There are are stones of the right kidney which measure up to 7 mm. At least five stones are noted in the left kidney which measure up to 7 mm. No stones are identified in the left ureter or the urinary bladder. The bowel gas pattern is normal. There is a moderate volume of colonic stool. IMPRESSION: 1. Right internal ureteral stent in expected position with three stones projecting adjacent to the mi d stent. 2. Bilateral nephrolithiasis. Reviewed, dictated and finalized at location B. IMPRESSION: 1. Right internal ureteral stent in expected position with three stones project ing adjacent to the mid stent. 2. Bilateral nephrolithiasis.
--- NOTE | 2022-02-22 06:59 | WPDHPUPDATE1 ---
History and Physical Update Update Date/Time: 02/22/22 06:59 History and Physical has been reviewed, including an updated exam of the patient. There are NO changes in the patient's condition. Risks, benefits, and alternatives have been discussed and questions answered. Patient agrees to proceed with procedure.
[2022-02-22] MEDS: LACTATED RINGERS 1,000 ML 30 ML IV CONT ×2 (10:00→11:50)
[2022-02-22] MEDS: ceFAZolin 3 GM/D5W 100 ML 100 ML IVPB (10:33)
--- NOTE | 2022-02-22 10:49 | W.PM.PROC2 ---
Procedure Note - Detailed Date of Procedure 02/22/22 Pre-op Diagnosis Right ureteral and renal stones Post-op Diagnosis Same Procedure Performed Right ureteral and renal ESWL Surgeon Gerardo Lee MD Description of Procedure The patient was brought to the operative suite where he was placed in the supine position on the Dornier lithotripsy table. The focal point of the lithotripter was placed at a his three, contiguous right mid-ureteal stones. A total of 3000 shocks were delivered at a power setting of 6. We then treated his small right kidney stone with an addtional 2000 shocks at a power setting of 4. There appeared to be good fragmentation of the stone. The patient tolerated the procedure well and was taken to the recovery room in good condition. Drains Yes Packing Yes Pathology None sent Complications No immediate complications Condition Stable
== END 2022-02-22 13:45 | disposition home or self-care (01) ==
PROVIDERS: PCP Family Medicine; Visit Provider Urology
PROC: (CPT 50590; principal; 2022-02-22 11:00)
DX: N20.2 Calculus of kidney with calculus of ureter (principal); I10 Essential (primary) hypertension; E78.5 Hyperlipidemia, unspecified; E03.9 Hypothyroidism, unspecified; M10.9 Gout, unspecified; I45.10 Unspecified right bundle-branch block; E66.9 Obesity, unspecified; Z68.36 Body mass index [BMI] 36.0-36.9, adult
CPT/HCPCS: 50590; 36415; 74018; 81001; 85610; 85730; 93005; J0690; J1100; J2250; J2405; J2704; J3010; J7120

== ENCOUNTER 2022-02-28 13:54 | Outpatient (CLI) | payer OTHER, SELFPAY ==
--- NOTE | ~2022-02-28 | XR_ITS ---
XR abdomen/kub 1V 02/28/2022 14:18 Indication: Renal stones. Procedure: KUB Comparison: Comparison to multiple prior studies sequentially, with oldest reviewed study dated 01/25. Findings: There is a right internal ureteral stent. There are bilateral renal stones. There are multi ple proximal right ureteral stones. Bowel gas pattern is nonobstructive. No acute osseous abnormality . Impression: 1: Bilateral renal and right proximal ureteral stones. Reviewed, dictated and finalized at location B. Impression: 1: Bilateral renal and right proximal ureteral stones.
== END 2022-02-28 13:55 | disposition home or self-care (01) ==
PROVIDERS: PCP Family Medicine; Visit Provider Urology
DX: N20.2 Calculus of kidney with calculus of ureter (principal)
CPT/HCPCS: 74018

== ENCOUNTER 2022-03-08 15:18 | Outpatient (CLI) | payer OTHER, SELFPAY ==
--- NOTE | ~2022-03-08 | XR_ITS ---
XR abdomen/kub 1V DATE: 03/08/2022 15:40 INDICATION: Calcium kidney stone TECHNIQUE: 3 AP views COMPARISON: 02/28/2022 KUB FINDINGS: Right internal urinary stent is again noted in expected position, unchanged since 2. Steinstrasse is again noted in the right ureter at the L3-4 level. There are persistent multiple bilateral renal calcified calculi. The psoas shadows are intact. No visceromegaly. No evidence of bowel obstruction. 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 Reviewed, dictated and finalized at location A.
== END 2022-03-08 15:19 | disposition home or self-care (01) ==
PROVIDERS: PCP Family Medicine; Visit Provider Urology
DX: N20.0 Calculus of kidney (principal)
CPT/HCPCS: 74018

== ENCOUNTER 2022-03-15 02:09 | Day surgery (SDC) | payer OTHER, SELFPAY ==
[2022-03-12 11:28] VITALS: BMI 36.9
--- NOTE | 2022-03-12 11:31 | PC.NURSE ---
Report to the Outpatient Waiting Room, entrance under the green pavilion located off [facility], at time 0830 on date 03/15/22. Planned Procedure Time: 1030. Time changes happen often and if your time is changed the preop area will call you the afternoon before. - You and your visitor will be asked to self-screen and do not enter if you have any COVID symptoms. - We encourage only one visitor and NO visitors under age 16 are allowed at this time. Your visitor will receive communication by the phone number that is given day of service. - The patient visitor is requested to social distance or may leave the building when not with patient due to restrictions. - A mask is OPTIONAL within the hospital. Patients may have clear liquids (water, carbonated beverages, clear teas, apple juice) until 3 hours prior to surgery with a maximum of 20 ounces. - No food from midnight until time of surgery Take the following medications with a SIP of water the morning of surgery: PAIN PILL IF NEEDED Medications to discontinue per physician: N/A Date to take last dose: N/A Please no make-up, nail montenegrin, hairspray, perfume, deodorant, or body powder the day of surgery. No jewelry (including any body piercings) or valuables the day of surgery, leave them at home. Please take a shower or bath the night before, or the morning of, surgery with an antibacterial soap. Wear comfortable, loose fitting clothing. - Jewelry must be removed prior to entering the operating room. Rings and piercings that are not removed may be cut off. - The hospital will not accept responsibility for valuables. - Please leave all valuables, including medications, at home the day of surgery. If you are going home after surgery, a licensed bull driver must drive you home. - NO public transportation without another adult. - We recommend that an adult stay with you for 24 hours following discharge. - We also recommend that you do not drive, make important decision, drink alcoholic beverages, or take any drugs that were not prescribed by your health care provider for at least 24 hours after your discharge time. Follow any additional instructions given to you from your surgeon. If you or anyone in your household have experienced Covid symptoms in the past week, please notify your surgeon or the nurse liaison at the phone number below for possible testing. Telephone instructions given to PT - JACIEL HENAO and asked if any additional questions and then verbalized understanding. Patient advised to call surgeon office or pre surgery nurse liaison [phone] if any additional questions.
[2022-03-15] VITALS (8 sets, daily range): BP systolic 98–140; BP diastolic 63–94; PULSE 64–91; RESP 14–16; TEMP 36.7–36.8; O2SAT 94–100; BMI 37.3
--- NOTE | ~2022-03-15 | XR_ITS ---
EXAMINATION: XR stent kub - surgery DATE: 03/15/2022 12:18 INDICATION: Right ureteral stone. TECHNIQUE: 5 intraoperative fluoroscopic views of the abdomen and pelvis were obtained. I was not pr esent. Fluoroscopy exposure time was 44 seconds. COMPARISON: Abdomen radiographs 03/08/2022, CT abdomen and pelvis 01/20/2022 FINDINGS: Initial images demonstrate a right internal ureteral stent in expected position. There are multiple stones in the right ureter. There is a new right internal ureteral stent in expected positio n. IMPRESSION: 1. Right ureteral stent removal, stone extraction, and ureteral stent replacement. Reviewed, dictated and finalized at location A. TRICAL MANAGER IMPRESSION: 1. Right ureteral stent removal, stone extraction, and ureteral stent replaceme nt.
--- NOTE | 2022-03-15 06:55 | WPDHPUPDATE1 ---
History and Physical Update Update Date/Time: 03/15/22 06:55 History and Physical has been reviewed, including an updated exam of the patient. There are NO changes in the patient's condition. Risks, benefits, and alternatives have been discussed and questions answered. Patient agrees to proceed with procedure.
[2022-03-15] MEDS: LACTATED RINGERS 1,000 ML 30 ML IV CONT (09:00)
--- NOTE | 2022-03-15 10:05 | SUR.PREOP ---
1005- Notified patient procedure start time may be delayed and patient verbalized understanding.
--- NOTE | 2022-03-15 10:22 | WPDANESEPPF ---
Anes - Initial Pre Proc Eval Procedure: Operation Date: 03/15/22 10:30 Proposed Procedures p Cystoscopy, Right Ureteroscopy, Right Stone Extraction, Possible Right Retrograde Pyelogam, Possible Right Stent Placement with Laser Lithotripsy - Gerardo Lee MD Date/Time: 03/15/22 10:22 Surgeon: eGrardo Lee MD Pre Op Diagnosis: Right Ureteral Stone Patient Data Age: 46 Gender: M Height: 1.85 m Weight: 128.2 kg Last Vital Signs Temp 36.7 C 03/15/22 08:42 Pulse 77 03/15/22 08:42 Resp 16 03/15/22 08:42 BP 123/86 03/15/22 08:42 Pulse Ox 99 03/15/22 08:42 O2 Del Method Room Air 03/15/22 08:42 Allergies Allergy/AdvReac Type Severity Reaction Status Date / Time No Known Allergies Allergy Verified 03/12/22 11:27 Home Medications Medication Instructions Recorded Confirmed Type ibuprofen 200 mg tablet (Advil) 200 mg PO Q6H PRN Pain 11/23/19 03/12/22 History allopurinol 300 mg tablet 300 mg PO DAILY #90 tabs 12/03/21 03/12/22 Rx levothyroxine 175 mcg tablet 175 mcg PO DAILY #90 tabs 12/03/21 03/15/22 Rx ondansetron 4 mg disintegrating 4 mg PO Q8H PRN nausea and 01/20/22 03/12/22 Rx tablet vomiting #20 tabs hydrocodone 5 mg-acetaminophen 325 1 - 2 tablet PO Q6H PRN pain #20 02/22/22 03/15/22 Rx mg tablet tabs Patient hx anesthesia problems: none Family hx anesthesia problems: none Results Review: All pre-operative results and documents have been reviewed as part of the pre-operative evaluation. 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 Gender identity (if verbalized by the patient): Male Sexual Orientation (if Verbalized by the Patient): Straight or Heterosexual Spiritual care concerns: No Agree to blood products: Yes Anes - Eval Final PreProcedure Day of Procedure 03/15/22 10:22 Patient weight: obese Heart: regular rate and rhythm Lungs: clear to auscultation Airway: Mallampati scale class II Neurological: alert and oriented Last oral intake: >/= 8 hours ASA classification: II Emergent: no Anesthetic plan: proceed Anesthesia type and monitoring: general LMA and standard monitoring Results Review: All pre-operative results and documents have been reviewed as part of the pre-operative evaluation. Informed Consent: The patient's anesthetic plan and its attendant risks and benefits were discussed with the patient/family/POA. Questions were solicited and answers provided to the satisfaction of the patient/family/POA.
[2022-03-15] MEDS: ceFAZolin 3 GM/D5W 100 ML 100 ML IVPB (11:13)
[2022-03-15] MEDS: LIDOCAINE HCL 2% GEL UROJET 10 ML PKG MUCOUS MEM (11:13)
--- NOTE | 2022-03-15 12:25 | W.PM.PROC2 ---
Procedure Note - Detailed Date of Procedure 03/15/22 Pre-op Diagnosis Right Ureteral Stones Post-op Diagnosis Same Procedure Performed Cystoscopy, right ureteral stent removal, right ureteroscopy with laser lithotripsy, stone extraction and ureteral stent replacement Surgeon Gerardo Lee MD Anesthesia General Description of Procedure patient is brought to the operative suite was prepped draped in routine sterile fashion while in dorsal lithotomy position after the uneventful induction of a general anesthetic. Cystoscopy is undertaken with a 19 F rigid cystoscope. The tip of the indwelling stent is grasped and is brought to the external urethral meatus. A 0.035 in glidewire was advanced into the right renal pelvis. The distal ureter was dilated with an 8 F 10 F dilator and a 12 14 F access sheath is placed. A 2nd guidewire was placed as a safety wire. Ureteroscopy was undertaken with a 7.5 F flexible ureteral scope. I identified 3 moderate size residual stone fragments in his right mid ureter. These are fractured with a 272 micron holmium laser fiber. Essentially all fragments are then removed with a 1.9 F disposable stone basket. Careful ureteral re-endoscopy reveals no identifiable residual fragments of any size. The access sheath and ureteral scope were removed and a 4.8 F double-J ureteral stent is appropriately positioned under proximal coil in the renal pelvis and distal coil in the bladder. Drains Yes Packing No Pathology Yes Complications No immediate complications
[2022-03-15] MEDS: oxyCODONE HCL (*CRX) 5 MG TAB IR PO (13:51)
== END 2022-03-15 14:25 | disposition home or self-care (01) ==
PROVIDERS: PCP Family Medicine; Visit Provider Urology
PROC: (CPT 52352; principal; 2022-03-15 10:30)
DX: N20.1 Calculus of ureter (principal); E03.9 Hypothyroidism, unspecified
CPT/HCPCS: 52356; 82365; 88300; A9270; C1758; C1769; C1887; C1894; J0690; J1100; J1165; J1200; J2250; J2405; J2704; J3010; J7120

== ENCOUNTER 2022-10-15 10:09 | Outpatient (CLI) | payer OTHER, SELFPAY ==
--- NOTE | ~2022-10-15 | XR_ITS ---
EXAMINATION: XR abdomen/kub 1V INDICATION: Calcium kidney stone TECHNIQUE: Supine views of the abdomen were obtained on 2 radiographs. COMPARISON: 03/08/2022 FINDINGS: The right internal ureteral stent has been removed. Previously described right ureteral sto shaal are no longer identified. There are stable left kidney stones measuring 5 mm and 4 mm in the mid kidney and 6 mm in the lower pole. No stones are identified IMPRESSION: 1. Stable left nephrolithiasis. 2. Interval removal of right internal ureteral stent and treatment of right ureteral stones. Reviewed, dictated and finalized at location A. IMPRESSION: 1. Stable left nephrolithiasis. 2. Interval removal of right internal ureteral stent and treatment of right ure teral stones.
== END 2022-10-15 10:10 | disposition home or self-care (01) ==
LOC: ANHIMG 10:13
PROVIDERS: PCP Family Medicine; Visit Provider Urology
DX: N20.0 Calculus of kidney (principal)
CPT/HCPCS: 74018

== ENCOUNTER 2023-01-20 14:30 | Outpatient (CLI) | payer OTHER, SELFPAY ==
[2023-01-20 19:18] LABS: Basophils Absolute Auto 0.1 K/mm3 (0.0-0.1); Basophils Percent Auto 0.8 % (0.2-1.2); Eosinophils Absolute Auto 0.2 K/mm3 (0-0.3); Eosinophils Percent Auto 2.3 % (0-4.4); Hematocrit 46.7 % (42.0-52.0); Hemoglobin 15.4 g/dL (14.0-18.0); Immature Granulocyte Absolute 0.01 K/mm3 (0.00-0.031); Immature Granulocyte Percent A 0.1 % (0-0.5); Lymphocytes Percent Auto 28.4 % (18.3-44.2); Mean Corpuscular Volume 90.9 fl (80-100); Mean Platelet Volume 11.2 fl (7.4-10.4); Monocytes Absolute Auto 0.7 K/mm3 (0.1-0.6); Monocytes Percent Auto 8.9 % (2.6-8.5); Neutrophils Absolute Auto 4.4 K/mm3 (1.3-6.7); Neutrophils Percent Auto 59.5 % (45.5-73.1); Platelet Count Result 235 k/mm3 (150-375); Red Blood Count 5.14 M/mm3 (4.6-6.20); Red Cell Distribution Width 12.6 % (11.5-14.5); White Blood Count 7.4 K/mm3 (4.5-10.0)
[2023-01-20 20:20] LABS: Alanine Aminotransferase 41 U/L (6-50); Albumin Level 4.4 g/dL (3.5-5.1); Alkaline Phosphatase 57 U/L (38-126); Anion Gap 6 mmol/L (8-16); Aspartate Amino Transferase 45 U/L (17-59); Bilirubin,Total 1.1 mg/dL (0.2-1.3); Blood Urea Nitrogen 13 mg/dL (9-20); Calcium 9.6 mg/dL (8.4-10.2); Carbon Dioxide 30 mmol/L (22-30); Chloride 103 mmol/L (98-107); Estimated Glomerular Filt Rate > 60; Glucose 117 mg/dL (65-110); Potassium 4.3 mmol/L (3.4-5.0); Sodium 139 mmol/L (137-145)
[2023-01-20 20:29] LABS: Thyroid Stimulating Hormone Reflex 0.021 uIU/mL (0.465-4.68)
[2023-01-20 20:46] LABS: Thyroid Stimulating Hormone 0.023 uIU/mL (0.465-4.680)
[2023-01-20 21:02] LABS: Free T4 Free Thyroxine Reflex 2.42 ng/dL (0.78-2.19)
[2023-01-20 21:23] LABS: Hemoglobin A1C 5.4 % (<5.7)
== END 2023-01-20 14:31 | disposition home or self-care (01) ==
LOC: ANHGOSHLAB 14:31
PROVIDERS: PCP Family Medicine; Visit Provider Nurse Practitioner Family
DX: Z13.1 Encounter for screening for diabetes mellitus (principal); R00.2 Palpitations; I45.10 Unspecified right bundle-branch block; I10 Essential (primary) hypertension; E03.9 Hypothyroidism, unspecified
CPT/HCPCS: 36415; 80053; 83036; 84439; 84443; 85025

== ENCOUNTER 2023-03-11 16:24 | Emergency (ER) | payer OTHER, SELFPAY ==
--- NOTE | 2023-03-11 16:26 | ED.URI ---
HPI - URI/Sore Throat General Chief Complaint: Upper Respiratory Infection Stated Complaint: Fever;Chills;Sore Throat Time Seen by Provider: 03/11/23 16:25 Source: patient Mode of arrival: ambulatory Limitations: no limitations History of Present Illness HPI Narrative: Zach is a 47-year-old male patient presenting to the clinic today with complaints of fever, chills, and sore throat times 1-2 days. He reports highest fever was 102. He denies any known exposure to anyone with COVID, flu, or strep. MD elicited complaint: fever, sore throat, nasal congestion and other (Body aches, chills) Related Data Home Medications Medication Instructions Recorded Confirmed ibuprofen 200 mg tablet (Advil) 200 mg PO Q6H PRN Pain 11/23/19 03/11/23 Allergies Allergy/AdvReac Type Severity Reaction Status Date / Time No Known Allergies Allergy Verified 03/11/23 16:44 Review of Systems Review of Systems: Pertinent positives per HPI. Patient denies any rash, headache, visual changes, dizziness, cough, shortness of breath, chest pain, palpitations, nausea, vomiting, diarrhea, constipation, abdominal pain, or any urinary issues. [facility] Past Medical History Medical History Asthma Diverticulitis (~12/2018) Dyslipidemia Gout HTN (hypertension) improved with weight loss Hypothyroid Right bundle branch block Right renal stone (~06/2018) Right ureteral stone (~03/2022) Surgical History Surgical History History of nasal septoplasty (~2014) Family History Family History Mother Acute myocardial infarction Social History Social History Social History: Caffeine- coffee Smoking status: Never smoker Alcohol intake: never Substance use: never Substance use type: does not use Lack of Transportation: No Lack of Food: Never True Current Housing: I Have Housing Concerned About Future Housing: No Difficulty Paying Gas/Electric Bills: No Difficulty Paying for Meds: No Currently Unemployed: No Education: Master's Degree or Higher Difficulty w/ Childcare or Family Care: No Living arrangements: with family Additional living arrangements comments: & CHILDREN 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: occupation 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 There is no relevant family history pertinent to the patient complaint. Exam Narrative: General: Well-developed, well nourished, in no apparent distress Head: Normocephalic, atraumatic Eyes: Pupils equally round and reactive to light bilaterally, EOM intact, sclera and conjunctive clear, no discharge, lids normal Ears: TMs intact and clear, ear canals clear, no drainage, grossly hearing normal. Nose: Nares patent, clear nasal discharge, no inflammation, no sinus tenderness. Mouth: Oropharynx red with bilateral tonsillar enlarged without lesions or masses, good dentition, MMM. Neck: Supple, trachea midline, enlargement of anterior cervical nodes, no thyroid masses or goiter palpable. Cardio: Regular rate and rhythm, s1 and s2 normal, no murmur appreciated. Resp: Clear to auscultation bilaterally anteriorly and posteriorly, no rhonchi, rales, wheezing or rubs Course Course Emergency Course: Portions of this record may have been created with voice recognition software. Level of Care: Express Care Visit Vital Signs Vital signs: Vital signs reviewed MDM - URI/Sore Throat MDM Narrative Medical
[2023-03-11 16:37] VITALS: BP 119/80; PULSE 113; RESP 16; TEMP 38.5; O2SAT 100
== END 2023-03-11 16:46 | disposition home or self-care (01) ==
PROVIDERS: Emergency Provider Nurse Practitioner Family; PCP Family Medicine
DX: J02.0 Streptococcal pharyngitis (principal); J45.909 Unspecified asthma, uncomplicated; E78.5 Hyperlipidemia, unspecified; M10.9 Gout, unspecified; I10 Essential (primary) hypertension; E03.9 Hypothyroidism, unspecified
CPT/HCPCS: 87804; 87880; 99213; G0463

== ENCOUNTER → 2023-04-11 13:11 | Outpatient (CLI) | payer OTHER, SELFPAY ==
--- NOTE | ~2023-04-11 | XR_ITS ---
XR shoulder LT min 2V 04/11/2023 13:29 Indication: Left shoulder pain Procedure: 4 views left shoulder Comparison: No prior studies for comparison. Findings: No fracture, subluxation or dislocation. There is anatomic alignment. No soft tissue abnorm ality. Impression: 1: No significant bone or joint abnormality. Reviewed, dictated and finalized at location B. LA TENDER HELPER Impression: 1: No significant bone or joint abnormality.
== END ==
PROVIDERS: PCP Family Medicine; Visit Provider Nurse Practitioner Family
DX: M25.512 Pain in left shoulder (principal)
CPT/HCPCS: 73030

== ENCOUNTER 2023-04-30 09:50 | Outpatient (CLI) | payer OTHER, SELFPAY ==
--- NOTE | 2023-05-08 15:29 | WPDHOMESLEEP ---
Sleep Study - Home Unattended Date of Study: 04/30/23 Ordering Provider: Destiny Ortiz, CHAIN DYER Interpreting Provider: Ani Pickard MD [facility] Type: Watch PAT Height: 1.85 m Weight: 129.274 kg Body Mass Index: 37.5 Neck Circumference (inches): 18 Airway Heights: 7 Reason for Sleep Study Wakes up feeling tired, fatigue, headaches Sleep History Zach Loomis is a 47-year-old man with thyroid disease, assumed that his symptoms of feeling fatigued and tired in the day were due to thyroid He never awakens from sleep feeling short of breath. He occasionally wakes at night with heartburn, belching or coughing.??He rarely snores, rarely snores loudly enough that others complain. He occasionally has trouble sleeping when he has a cold. He never wakes up gasping for breath during the night. He never has breathing problems at night. He occasionally sweats excessively at night. He rarely notices his heart pounding or beating irregularly during the night. He occasionally falls asleep during the day. He never falls asleep involuntarily, never falls asleep while driving. He never experiences loss of muscle tone with strong emotion. He occasionally has daytime difficulty at work due to excessive sleepiness. 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 He never feels paralyzed on waking or falling asleep. He never experiences vivid dreams upon waking or falling asleep. He never feels afraid of going to sleep. He occasionally has nightmares. He occasionally recalls his dreams. He frequently has thoughts racing through his mind. He occasionally feels sad or depressed. He frequently has anxiety. He occasionally notices parts of his body jerk. He occasionally kicks during the night. He occasionally feels crawling or aching feelings in his legs. He occasionally feels leg pain at night. He rarely has morning jaw pain, occasionally grinds his teeth at night. He occasionally feels bothered by pain during the day, rarely awakened by pain during the night. He rarely wakes up feeling stiff in the morning, and he occasionally wakes feeling sore or achy. He occasionally awakens with pain in his neck, spine, or joints. He has fatigue, memory problems, concentration difficulties and headaches. Normal bedtime is 12:00 midnight falling asleep within 15-20 minutes typically waking 2-3 times during the night to use the bathroom a rollover, returns to sleep within 5-10 minutes. He wakes in the morning by 7:00 a.m.. On weekends his schedule is similar, bedtime is 1:00 a.m. and his wake time is 9:00 a.m.. He estimates getting 5-7 hours of sleep normally. Not often but on occasion every 2 or 3 months he works a different shift, either 7:00 p.m. to 3:00 a.m. or 2:00 a.m. to 10:00 a.m. shift. He does take naps in the afternoon or evening. A short nap lasting 10-15 minutes is not refreshing. Habits:??Tobacco: None Caffeine: 1-2 cups a day. Alcohol: none Recreational substances: none PMFSH Past Medical History Medical History Asthma Diverticulitis (~12/2018) Dyslipidemia Gout HTN (hypertension) improved with weight loss Hypothyroid Right bundle branch block Right renal stone (~06/2018) Right ureteral stone (~03/2022) Surgical History Surgical History History of nasal septoplasty (~2014) Family History Family History Mother Acute myocardial infarction Social History Social History Social History: Caffeine- coffee Smoking status: Never smoker Alcohol intake: never Substance use: never Substance use type: does not use Lack of Transportation: No Lack of Food: Never True Current Housing: I Have Housing Concerned About Future Housing: No Difficulty Paying Gas/Electr
[2023-05-08 15:54] VITALS: BMI 37.5
== END 2023-05-01 08:00 | disposition home or self-care (01) ==
LOC: ANHCSM 09:52
PROVIDERS: PCP Family Medicine; Visit Provider Nurse Practitioner Adult Health
DX: G47.8 Other sleep disorders (principal); R40.0 Somnolence
CPT/HCPCS: 95800

== ENCOUNTER 2023-05-10 12:03 | Emergency (ER) | payer OTHER, SELFPAY ==
--- NOTE | 2023-05-10 12:06 | ED.EAR ---
HPI - Ear Problem General Chief complaint: Ear Stated complaint: Ear Swelling/Pain Time Seen by Provider: 05/10/23 12:24 Source: patient, RN notes reviewed and old records reviewed Mode of arrival: ambulatory Limitations: no limitations History of Present Illness HPI Narrative: 47-year-old male presents to the [facility] with pain and swelling to the left ear that started on . Has been using Q-tips Related Data Home Medications Medication Instructions Recorded Confirmed ibuprofen 200 mg tablet (Advil) 200 mg PO Q6H PRN Pain 11/23/19 03/11/23 Allergies Allergy/AdvReac Type Severity Reaction Status Date / Time No Known Allergies Allergy Verified 04/08/23 15:42 Review of Systems Review of Systems: All systems reviewed & are unremarkable except as noted in HPI and below Constitutional: Constitutional: Reports no additional constitutional complaints Eyes: Eyes: Reports no additional eye complaints ENT: Reports as per HPI and Reports otalgia (Left ear pain) Cardiovascular: Cardiovascular: Reports no additional cardiovascular complaints, Denies chest pain and Denies dyspnea Respiratory: Respiratory: Reports no additional respiratory complaints, Denies chest congestion, Denies cough and Denies dyspnea Gastrointestinal: Gastrointestinal: Reports no additional gastrointestinal complaints, Denies abdominal pain, Denies nausea and Denies vomiting Musculoskeletal: Musculoskeletal: Reports no additional musculoskeletal complaints Integumentary/Breasts: Skin/Breast: Reports system reviewed and no additional complaints, except as docu Neurologic: Reports system reviewed and no additional complaints, except as documented Psychiatric: Psychiatric: Reports no additional psychiatric complaints Allergic/Immunologic: Allergic/Immunologic: Reports no additional allergic/immunologic complaints [facility] Past Medical History Medical History Asthma Diverticulitis (~12/2018) Dyslipidemia Gout HTN (hypertension) improved with weight loss Hypothyroid Right bundle branch block Right renal stone (~06/2018) Right ureteral stone (~03/2022) Surgical History Surgical History History of nasal septoplasty (~2014) Family History Family History Mother Acute myocardial infarction Social History Social History Social History: Caffeine- coffee Smoking status: Never smoker Alcohol intake: never Substance use: never Substance use type: does not use Lack of Transportation: No Lack of Food: Never True Current Housing: I Have Housing Concerned About Future Housing: No Difficulty Paying Gas/Electric Bills: No Difficulty Paying for Meds: No Currently Unemployed: No Education: Master's Degree or Higher Difficulty w/ Childcare or Family Care: No Living arrangements: with family Additional living arrangements comments: & CHILDREN 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: occupation 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 There is no relevant family history pertinent to the patient complaint. Exam Const: General: cooperative, healthy appearing, comfortable, no acute distress, well developed, alert and well nourished Nutritional Appearance: well nourished and obese Orientation/consciousness: patient oriented x3 Limitations: no limitations HENMT: Head: normal to inspection Ears: hearing grossly normal bilaterally, external ears normal, TM's normal bilaterally, mas
[2023-05-10 12:09] VITALS: BP 124/83; PULSE 85; RESP 16; TEMP 36.4; O2SAT 96
== END 2023-05-10 12:37 | disposition home or self-care (01) ==
PROVIDERS: Emergency Provider Nurse Practitioner; PCP Family Medicine
DX: H92.02 Otalgia, left ear (principal); H61.892 Other specified disorders of left external ear; E78.5 Hyperlipidemia, unspecified; M10.9 Gout, unspecified; I10 Essential (primary) hypertension; E03.9 Hypothyroidism, unspecified
CPT/HCPCS: 99213; G0463

== ENCOUNTER 2023-05-30 14:41 | Outpatient (CLI) | payer OTHER, SELFPAY ==
--- NOTE | ~2023-05-30 | XR_ITS ---
XR abdomen/kub 1V 05/30/2023 14:53 Indication: Renal stone Procedure: KUB Comparison: Comparison to multiple prior studies sequentially, with oldest reviewed study dated 02/03. Findings: There are bilateral renal stones without significant change. Bowel pattern nonobstructive. Moderate colonic fecal loading. Impression: 1: Stable bilateral nephrolithiasis. Reviewed, dictated and finalized at location B. LLOGRAPHER Impression: 1: Stable bilateral nephrolithiasis.
== END 2023-05-30 14:42 | disposition home or self-care (01) ==
LOC: ANHIMG 14:42
PROVIDERS: PCP Family Medicine; Visit Provider Urology
DX: N20.0 Calculus of kidney (principal)
CPT/HCPCS: 74018

== ENCOUNTER 2023-07-11 13:30 | Outpatient (RCR) | payer OTHER, SELFPAY ==
--- NOTE | 2023-04-18 15:21 | PTOPEVAL1 ---
Assessment and note entered by Jono Briones, PT Evaluation Information Assessment Status Evaluation Diagnosis Unspecified shoulder pain, Arm weakness Onset 03/31/23 Subjective Information Reports that he attempted to do a workout and noticed increased pain the week after Thanksgiving . All of the pain is in the left shoulder and is lateral to the shoulder. Occasionally down to the elbow. Has trouble lifting heavy objects and has a lot of trouble reaching behind his back. He was icing initially and taking Advil for pain. He has avoided lifting. He is R hand dominant. 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 He has been getting headaches since the onset. Reported Pain Level Pain Score 2: Self Report Assessment PT Clinical Summary Patient presents with signs and symptoms consistent with shoulder impingement and possible minor cervical compression involvement. Patient has impingement position posture and is positive for impingement testing of shoulder. 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 Plan of Care Interventions Electrical Stimulation,Hot Pack/Cold Pack,Manual Therapy,Neuro Re-education,Therapeutic Activities, Therapeutic Exercise PT Services Indicated Yes Treatment Frequency and 1-2x/week for 4 weeks Duration These treatments will address the objective and functional deficits as defined above. The patient will be advanced safely and appropriately in order for the patient to progress towards his/her prior level of function. Additional exercises will be introduced and as well as a comprehensive home exercise program upon discharge, if needed, ?to ensure carryover of functional gains achieved in the clinic. This treatment plan has been reviewed and agreement upon by the patient.
--- NOTE | 2023-04-18 15:22 | OPREHPOC ---
Outpatient Therapy Plan of Care This is a Multidisciplinary Plan of Care that may contain components documented by all disciplines (PT, OT, and ST.) PT Problem 1 PT Problem #1 Knowledge Deficit PT Goal 1 Goal Patient will be independent with HEP Target Visit 4 PT Problem 2 PT Problem #2 Pain PT Goal 1 Goal Report no pain when reaching into wallet pocket indicating reduced impingement Target Visit 4 PT Problem 3 PT Problem #3 Impaired Range of Motion PT Goal 1 Goal Improve L shoulder flexion ROM to 170 degrees to promote full functional capsular mobility for active reach Target Visit 8 PT Goal 2 Goal Patient will achieve 90 degrees of L shoulder ER for pain free dressing and self care Target Visit 8 PT Problem 4 PT Problem #4 Impaired Strength PT Goal 1 Goal Improve L shoulder ER strength to 5/5 to promote shoulder and scapular stability for lifting and tonal decompression of shoulder girdle during ADL performance Target Visit 8 PT Goal 2 Goal Improve L shoulder flexion strength to 4+/5 to improve object lifting and ADL perfromance Target Visit 8 PT Problem 5 PT Problem #5 Impaired Functional Mobil PT Goal 1 Goal Demonstrate negative Hendrickson-Yannick test on L UE indicating reduced impingement Target Visit 8
--- NOTE | 2023-05-16 14:33 | PTOPPROG ---
Assessment and note entered by Jono Briones, PT Evaluation Information Assessment Status Progress Diagnosis Unspecified shoulder pain, Arm weakness Onset 03/31/23 Subjective Information Feels that overall his neck mobility is much better. His arm is better but still painful reaching behind his back both above and under. Sleeping better. Occasionally gets some pain down arm when extending it. Feels he is about 50% better overall. 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 Overall he is showing consistent progress of about 50% of shoulder and neck motion. Will continue to benefit from skilled therapy as he continues to show capsular impingement. I discussed potential of cortisone injection from MD to maximize capsular mobilization with aggressive therapy. Plan of Care Interventions Electrical Stimulation,Hot Pack/Cold Pack,Manual Therapy,Neuro Re-education,Therapeutic Activities, Therapeutic Exercise PT Services Indicated Yes Treatment Frequency and 2x/week for 8 visits Duration These treatments will address the objective and functional deficits as defined above. The patient will be advanced safely and appropriately in order for the patient to progress towards his/her prior level of function. Additional exercises will be introduced and as well as a comprehensive home exercise program upon discharge, if needed, ?to ensure carryover of functional gains achieved in the clinic. This treatment plan has been reviewed and agreement upon by the patient.
--- NOTE | 2023-05-16 14:33 | OPREHPOC ---
Outpatient Therapy Plan of Care This is a Multidisciplinary Plan of Care that may contain components documented by all disciplines (PT, OT, and ST.) PT Problem 1 PT Problem #1 Knowledge Deficit PT Goal 1 Goal Patient will be independent with HEP Target Visit 4 Progress Met PT Problem 2 PT Problem #2 Pain PT Goal 1 Goal Report no pain when reaving into wallet pocket indicating reduced impingement Target Visit 16 Progress Not Met Comment Still hurting PT Problem 3 PT Problem #3 Impaired Range of Motion PT Goal 1 Goal Improve L shoulder flexion ROM to 170 degrees to promote full functional capsular mobility for active reach Target Visit 16 Progress Partially Met Comment Progressing PT Goal 2 Goal Patient will achieve 90 degrees of L shoulder ER for pain free dressing and self care Target Visit 16 Progress Partially Met Comment Progressing PT Problem 4 PT Problem #4 Impaired Strength PT Goal 1 Goal Improve L shoulder ER strength to 5/5 to promote shoulder and scapular stability for lifting and tonal decompression of shoulder girdle during ADL performance Target Visit 16 Progress Partially Met Comment Progressing PT Goal 2 Goal Improve L shoulder flexion strength to 4+/5 to improve object lifting and ADL performance Target Visit 16 Progress Partially Met Comment Progressing PT Problem 5 PT Problem #5 Impaired Functional Mobil PT Goal 1 Goal Demonstrate negitive Hendrickson-Yannick test oin L UE indicating reduced impingement Target Visit 16 Progress Partially Met Comment Progressing
--- NOTE | 2023-06-24 17:15 | PTOPPROG ---
Assessment and note entered by Jono Briones, PT Evaluation Information Assessment Status Progress Diagnosis Unspecified shoulder pain, Arm weakness Onset 03/31/23 Subjective Information Reports that overall he is doing well. Still has some limitation and some weakness with mild capsular restriction. Still having some trouble reaching behind his back. Would like to continue therapy. Assessment PT Clinical Summary Patient continues to show that there is capsular restriction. He has not shown significant ROM progress at this time but we have not had substantial force into capsular mobility. Will benefit from continuation of therapy to promote improved capsular mobility. Plan of Care Interventions Electrical Stimulation,Hot Pack/Cold Pack,Manual Therapy,Neuro Re-education,Therapeutic Activities, Therapeutic Exercise PT Services Indicated Yes Treatment Frequency and 1x/week for 4 visits Duration These treatments will address the objective and functional deficits as defined above. The patient will be advanced safely and appropriately in order for the patient to progress towards his/her prior level of function. Additional exercises will be introduced and as well as a comprehensive home exercise program upon discharge, if needed, ?to ensure carryover of functional gains achieved in the clinic. This treatment plan has been reviewed and agreement upon by the patient.
--- NOTE | 2023-06-24 17:15 | OPREHPOC ---
Outpatient Therapy Plan of Care This is a Multidisciplinary Plan of Care that may contain components documented by all disciplines (PT, OT, and ST.) PT Problem 1 PT Problem #1 Knowledge Deficit PT Goal 1 Goal Patient will be independent with HEP Target Visit 4 Progress Met PT Problem 2 PT Problem #2 Pain PT Goal 1 Goal Report no pain when reaving into wallet pocket indicating reduced impingement Target Visit 16 Progress Not Met Comment Progressing PT Problem 3 PT Problem #3 Impaired Range of Motion PT Goal 1 Goal Improve L shoulder flexion ROM to 170 degrees to promote full functional capsular mobility for active reach Target Visit 20 Progress Partially Met Comment Progressing PT Goal 2 Goal Patient will achieve 90 degrees of L shoulder ER for pain free dressing and self care Target Visit 20 Progress Partially Met Comment Progressing PT Problem 4 PT Problem #4 Impaired Strength PT Goal 1 Goal Improve L shoulder ER strength to 5/5 to promote shoulder and scapular stability for lifting and tonal decompression of shoulder girdle during ADL performance Target Visit 20 Progress Partially Met Comment Progressing PT Goal 2 Goal Improve L shoulder flexion strength to 4+/5 to improve object lifting and ADL perfromance Target Visit 16 Progress Met PT Problem 5 PT Problem #5 Impaired Functional Mobil PT Goal 1 Goal Demonstrate negitive Hendrickson-Yannick test oin L UE indicating reduced impingement Target Visit 20 Progress Partially Met Comment Progressing
== END 2023-07-17 11:25 | disposition still patient (30) ==
LOC: ANHGOSHPT 13:30
PROVIDERS: PCP Family Medicine; Visit Provider Nurse Practitioner Family
DX: M25.512 Pain in left shoulder (principal)
CPT/HCPCS: 97014; 97110; 97140; 97161; 97530; G0283

== ENCOUNTER 2023-10-10 14:45 | Outpatient (RCR) | payer OTHER, SELFPAY ==
--- NOTE | 2023-07-18 13:34 | PCPTNOTE ---
Patient information carried forward from [id number]
--- NOTE | 2023-07-25 15:33 | OPREHPOC ---
Outpatient Therapy Plan of Care This is a Multidisciplinary Plan of Care that may contain components documented by all disciplines (PT, OT, and ST.) PT Problem 1 PT Problem #1 Knowledge Deficit PT Goal 1 Goal [place] with HEP Target Visit 4 Progress Met PT Problem 2 PT Problem #2 Impaired Range of Motion PT Goal 1 Goal Patient will achieve 170 degrees of left shoulder flexion ROM for active reaching ability Target Visit 26 PT Goal 2 Goal Patient will demonstrate equal value of IR back reach left to right for self care and ADL performance. Target Visit 26 PT Goal 1 Goal Demonstrate ability to perform 8# lift overhead x 10 without shoulder or neck pain Target Visit 26
--- NOTE | 2023-07-25 15:33 | PTOPPROG ---
Assessment and note entered by Jono Briones, PT Evaluation Information Assessment Status Progress Diagnosis Unspecified shoulder pain, Arm weakness Onset 03/31/23 Subjective Information Patient reports that he is feeling more comfortable at rest with shoulder. He is noticing that on days he does his stretching he feels better. Still feels restriction at this time with reaching. Would like to continue with therapy as he feels he is making progress and gets pushed a little more here. Assessment PT Clinical Summary Patient is showing gradual improvement in functional reach at this time. Continues to present with signs and symptoms of adhesive capsulitis. Continues to struggle with flexion based activity. We have seen improvement with functional reach behind the back. Overall we have been very aggressive with treatment at this time and we are seeing improvement in capsular mobility but still have a lot of progress to be made. Plan of Care PT Services Indicated Yes These treatments will address the objective and functional deficits as defined above. The patient will be advanced safely and appropriately in order for the patient to progress towards his/her prior level of function. Additional exercises will be introduced and as well as a comprehensive home exercise program upon discharge, if needed, ?to ensure carryover of functional gains achieved in the clinic. This treatment plan has been reviewed and agreement upon by the patient.
--- NOTE | 2023-09-05 13:47 | PTOPPROG ---
Assessment and note entered by Jono Briones, PT Evaluation Information Assessment Status Progress Diagnosis Unspecified shoulder pain, Arm weakness Onset 03/31/23 Subjective Information Reports that overall he has continued to see progress. Followed up with nurse practitioner at orthopedic office and she was optimistic that he would make a conservative turn around. He feels reach is much improved with less pain. He plays catch with his daughter and still gets inflamed and sore with throwing. Assessment PT Clinical Summary Patient making consistent progress with shoulder ROM and reach. Still showing capsular restriction and has benefitted from skilled therapy emphasizing capsular mobilization, Dry needling to reduce internal rotation resistance, and functional reach. No concerns at this time with continue progress to continue to emphasize self care and range. Plan of Care PT Services Indicated Yes Treatment Frequency and 1x/week for 4 visits Duration These treatments will address the objective and functional deficits as defined above. The patient will be advanced safely and appropriately in order for the patient to progress towards his/her prior level of function. Additional exercises will be introduced and as well as a comprehensive home exercise program upon discharge, if needed, ?to ensure carryover of functional gains achieved in the clinic. This treatment plan has been reviewed and agreement upon by the patient.
--- NOTE | 2023-09-05 13:47 | OPREHPOC ---
Outpatient Therapy Plan of Care This is a Multidisciplinary Plan of Care that may contain components documented by all disciplines (PT, OT, and ST.) PT Problem 1 PT Problem #1 Knowledge Deficit PT Goal 1 Goal [place] with HEP Target Visit 4 Progress Met PT Problem 2 PT Problem #2 Impaired Range of Motion PT Goal 1 Goal Patient will achieve 170 degrees of left shoulder flexion ROM for active reaching ability Target Visit 30 Progress Partially Met Comment Significantly improved PT Goal 2 Goal Patient will demonstrate equal value of IR back reach left to right for self care and ADL performance. Target Visit 30 Progress Partially Met PT Goal 1 Goal Demonstrate ability to perform 8# lift overhead x 10 without shoulder or neck pain Target Visit 30 Progress Partially Met
== END 2023-10-16 13:18 | disposition still patient (30) ==
LOC: ANHGOSHPT 14:45
PROVIDERS: PCP Family Medicine; Visit Provider Nurse Practitioner Family
DX: M25.512 Pain in left shoulder (principal)
CPT/HCPCS: 97110; 97140; 97530

== ENCOUNTER 2023-10-31 09:15 | Outpatient (RCR) | payer OTHER, SELFPAY ==
--- NOTE | 2023-10-30 16:37 | PTOPDC ---
Assessment and note entered by Bartolo Motta Evaluation Information Assessment Status Discharge Diagnosis unspecified shoulder pain, arm weakness Onset 03/31/23 Subjective Information Pt. denies pain on this date. He reports she is significantly improved overall since beginning therapy. He continues to exercise at home describing multiple stretching exrecises. He states that most tightness is noted with attempting to reach behind his back, but now reaches to the middle of the back. He reports that he will continue with his HEP and is ready for discharge. Reported Pain Level Pain Score 0: Self Report Assessment PT Clinical Summary Pt. has met all goals established at the initial evaluation. He provides no reports of functional limitation with the Quick DASH. At this time he will be discharge from our care to an independent HEP. Plan of Care PT Services Indicated No
== END 2023-10-31 09:15 | disposition home or self-care (01) ==
LOC: ANHGOSHPT 09:15
PROVIDERS: PCP Family Medicine; Visit Provider Nurse Practitioner Family
DX: M25.512 Pain in left shoulder (principal)
CPT/HCPCS: 97110

== ENCOUNTER 2024-02-09 11:17 | Outpatient (CLI) | payer OTHER, SELFPAY ==
--- NOTE | 2024-02-09 11:24 | ECG_ITS ---
Test Date: 2024-02-09 11:41:11 Measurements Intervals [place] Rate: 62 P: 49 LA: 211 QRS: -12 QRSD: 149 T: -2 QT: 403 QTc: 410 Interpretive Statements SINUS RHYTHM WITH FIRST DEGREE AV BLOCK RIGHT BUNDLE BRANCH BLOCK [120+ ms QRS DURATION, UPRIGHT V1, 40+ ms S IN I/aVL/V4/V5/V6] ABNORMAL ECG No previous ECG available for comparison Electronically Signed On 02-09-2024 14:43:28 CDT by Bartolo Mancilla M.D.
[2024-02-09 12:20] LABS: Prothrombin Time 13.6 Seconds (11.1-14.7)
[2024-02-09 12:21] LABS: Partial Thromboplastin Time 27.9 Seconds (22.3-36.8)
== END 2024-02-09 11:18 | disposition home or self-care (01) ==
LOC: ANHSURGERY 11:21
PROVIDERS: PCP Family Medicine; Visit Provider Urology
DX: Z01.818 Encounter for other preprocedural examination (principal); I44.0 Atrioventricular block, first degree; I45.10 Unspecified right bundle-branch block; R94.31 Abnormal electrocardiogram [ECG] [EKG]; N20.0 Calculus of kidney; I10 Essential (primary) hypertension
CPT/HCPCS: 36415; 85610; 85730; 87086; 93005

== ENCOUNTER 2024-02-13 02:55 | Day surgery (SDC) | payer OTHER, SELFPAY ==
--- NOTE | 2024-02-03 13:02 | PM.HPGS ---
History of Present Illness History of Present Illness Consent: Risks, benefits, and alternatives have been discussed and questions answered. Patient agrees to proceed with procedure. Chief complaint: left renal stone Narrative: Zach Loomis is a 48 year old male well known to me with a history of recurrent urolithiasis. He is known to have a couple stones in his left kidney but deferred intervention because in international travels. He now presents for left ESWL is aware of the risks including, but not limited to, adverse cardiopulmonary events, hematuria, need for additional procedures and perinephric hematoma. Review of Systems Cardiovascular: Cardiovascular: Denies chest pain, Denies lightheadedness, Denies palpitations and Denies dyspnea Respiratory: Respiratory: Denies dyspnea Gastrointestinal: Gastrointestinal: Denies diarrhea, Denies nausea and Denies vomiting Genitourinary: Genitourinary: Denies hematuria and Denies dysuria Endocrine: Endocrine: Denies palpitations PMF Past Medical History Medical History Adhesive capsulitis of shoulder Asthma Diverticulitis (~12/2018) Dyslipidemia Gout HTN (hypertension) improved with weight loss Hypothyroid Left shoulder pain Right bundle branch block Right renal stone (~06/2018) Right ureteral stone (~03/2022) Surgical History Surgical History History of nasal septoplasty (~2014) Family History Family History Mother Acute myocardial infarction Unknown Asthma Hypertension Lung disease Arthritis Social History Social History Social History: Caffeine- coffee Smoking status: Never smoker Alcohol intake: never Substance use: never Substance use type: does not use Lack of Transportation: No Lack of Food: Never True Current Housing: I Have Housing Concerned About Future Housing: No Difficulty Paying Gas/Electric Bills: No Difficulty Paying for Meds: No Currently Unemployed: No Education: Master's Degree or Higher Difficulty w/ Childcare or Family Care: No Living arrangements: with family Additional living arrangements comments: & CHILDREN 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: occupation 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 Gender identity (if verbalized by the patient): Male Sexual Orientation (if Verbalized by the Patient): Straight or Heterosexual Spiritual care concerns: No Agree to blood products: Yes Meds Home Medications and Allergies Home Medications Medication Instructions Recorded Confirmed Type ibuprofen 200 mg tablet (Advil) 200 mg PO Q6H PRN Pain 11/23/19 09/02/23 History albuterol sulfate 90 mcg/actuation 1 puff inhalation Q4H PRN 01/20/23 09/02/23 Rx aerosol inhaler shortness of breath or wheezing #6.7 grams olmesartan 20 mg tablet 20 mg PO DAILY 06/10/23 09/02/23 History allopurinol 300 mg tablet 300 mg PO DAILY #90 tabs 10/10/23 Rx levothyroxine 150 mcg tablet 150 mcg PO DAILY #30 tabs 01/19/24 Rx Allergies Allergy/AdvReac Type Severity Reaction Status Date / Time No Known Allergies Allergy Verified 08/05/23 09:47 Exam Const: General: no acute distress Resp: Effort & Inspection: normal respiratory effort GI: Inspection: non-distended GI Palp: No abdominal tenderness and No Guarding due to palpation present (GI) Auscultation: normal bowel sounds Assessment and Plan Assessment and plan (1) Left renal stone: Code(s): N20.0 - Calculus of kidney Status: Acute
[2024-02-03 13:06] VITALS: BMI 38.2
--- NOTE | 2024-02-03 13:16 | SUR.PREOP ---
Report to the Outpatient Waiting Room, entrance under the green pavilion located off [facility], at time 6:30a.m. on date 02/13/2024. Planned Procedure Time: 8:30a.m.? Time changes happen often and if your time is changed the preop area will call you the afternoon before. - You and your visitor will be asked to self-screen and do not enter if you have any COVID symptoms. Please call surgeon if you need to reschedule. - A mask is optional within the hospital at this time. Patients may have clear liquids (water, carbonated beverages, clear teas, apple juice) until 3 hours prior to surgery with a maximum of 20 ounces. - No food from midnight until time of surgery and no smoking - Infants may have breast milk until 4 hours before surgery, infant formula 6 hours prior to surgery. - Children will be allowed to drink immediately following surgery.? If applicable, please bring a bottle or sippy cup to assist with drinking. Juice, water, soda, and popsicles are readily available.? For infants on formula, please bring formula the day of surgery.? Pacifiers are allowed. Take only the following medications with a SIP of water on the morning of surgery: Levothyroxine, Albuterol DO NOT STOP ANY OF YOUR OTHER PRESCRIPTION MEDICATIONS PRIOR TO SURGERY EXCEPT THE FOLLOWING Medications to discontinue per physician N/A Date to take last dose N/A Please no make-up, nail yemeni, hairspray, perfume, deodorant, or body powder the day of surgery.? No jewelry (including any body piercings) or valuables the day of surgery, leave them at home.? Please take a shower or bath the night before, or the morning of, surgery with an antibacterial soap.? Wear comfortable, loose fitting clothing.? Children are encouraged to wear pajamas. - Jewelry must be removed prior to entering the operating room.? Rings and piercings that are not removed may be cut off. - The hospital will not accept responsibility for valuables.? - Please leave all valuables, including medications, at home the day of surgery. If you are going home after surgery, a licensed otr refrigerated cdl truck driver must drive you home.? - NO public transportation without another adult if you receive anesthesia. - We recommend that an adult stay with you for 24 hours following discharge. - We also recommend that you do not drive, make important decision, drink alcoholic beverages, or take any drugs that were not prescribed by your health care provider for at least 24 hours after your discharge time. For Pediatric surgeries, we recommend two adults accompany the child home. Follow any additional instructions given to you from your surgeon. Telephone instructions given to Zach Loomis and asked if any additional questions and then verbalized understanding. Patient advised to call surgeon office or pre surgery nurse liaison [phone] if any additional questions.
[2024-02-13] VITALS (9 sets, daily range): BP systolic 100–122; BP diastolic 51–76; PULSE 57–85; RESP 12–18; TEMP 36.1–36.6; O2SAT 99–100
--- NOTE | ~2024-02-13 | XR_ITS ---
Supine and upright views of the abdomen Clinical history: Lithotripsy COMPARISON: 05/30/2023 Findings: Bowel gas pattern is nonspecific. No evidence for obstruction or free air. At least 3 left- sided renal stones are present, largest at the lower pole measuring 1 cm in diameter. Questionable ti ny right renal stones. Osseous structures are intact. Impression: Left nephrolithiasis, as above. Questionable tiny right renal stones. Reviewed, dictated and finalized at location . Impression: Left nephrolithiasis, as above. Questionable tiny right renal stones.
--- NOTE | 2024-02-13 06:32 | WPDHPUPDATE1 ---
History and Physical Update Update Date/Time: 02/13/24 06:32 History and Physical has been reviewed, including an updated exam of the patient. There are NO changes in the patient's condition. Risks, benefits, and alternatives have been discussed and questions answered. Patient agrees to proceed with procedure.
--- NOTE | 2024-02-13 06:54 | WPDANESEPPF ---
Anes - Initial Pre Proc Eval Procedure: Operation Date: 02/13/24 08:30 Proposed Procedures p Left Extracorporeal Shock Wave Lithotripsy - Gerardo Lee MD Date/Time: 02/13/24 06:54 Surgeon: Gerardo Lee MD Pre Op Diagnosis: left renal stone Patient Data Age: 48 Gender: M Height: 1.85 m Weight: 131.54 kg Allergies Allergy/AdvReac Type Severity Reaction Status Date / Time No Known Allergies Allergy Verified 02/03/24 13:05 Home Medications Medication Instructions Recorded Confirmed Type ibuprofen 200 mg tablet (Advil) 200 mg PO Q6H PRN Pain 11/23/19 02/03/24 History albuterol sulfate 90 mcg/actuation 1 puff inhalation Q4H PRN 01/20/23 02/03/24 Rx aerosol inhaler shortness of breath or wheezing #6.7 grams olmesartan 20 mg tablet 20 mg PO DAILY 06/10/23 02/03/24 History allopurinol 300 mg tablet 300 mg PO DAILY #90 tabs 10/10/23 02/03/24 Rx levothyroxine 150 mcg tablet 150 mcg PO DAILY #30 tabs 01/19/24 02/03/24 Rx Patient hx anesthesia problems: none Family hx anesthesia problems: none Results Review: All pre-operative results and documents have been reviewed as part of the pre-operative evaluation. [facility] Past Medical History Medical History Adhesive capsulitis of shoulder Asthma Diverticulitis (~12/2018) Dyslipidemia Gout HTN (hypertension) improved with weight loss Hypothyroid Left shoulder pain Right bundle branch block Right renal stone (~06/2018) Right ureteral stone (~03/2022) Surgical History Surgical History History of nasal septoplasty (~2014) Family History Family History Mother Acute myocardial infarction Unknown Asthma Hypertension Lung disease Arthritis Social History Social History Social History: Caffeine- coffee Smoking status: Never smoker Alcohol intake: never Substance use: never Substance use type: does not use Lack of Transportation: No Lack of Food: Never True Current Housing: I Have Housing Concerned About Future Housing: No Difficulty Paying Gas/Electric Bills: No Difficulty Paying for Meds: No Currently Unemployed: No Education: Master's Degree or Higher Difficulty w/ Childcare or Family Care: No Living arrangements: with family Additional living arrangements comments: & CHILDREN 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: occupation 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 Gender identity (if verbalized by the patient): Male Sexual Orientation (if Verbalized by the Patient): Straight or Heterosexual Spiritual care concerns: No Agree to blood products: Yes Anes - Eval Final PreProcedure Day of Procedure 02/13/24 06:54 Patient weight: obese Heart: regular rate and rhythm Lungs: clear to auscultation Airway: Mallampati scale class III Neurological: alert and oriented Last oral intake: >/= 8 hours ASA classification: III Emergent: no Anesthetic plan: proceed Anesthesia type and monitoring: general LMA and standard monitoring Results Review: All pre-operative results and documents have been reviewed as part of the pre-operative evaluation. Informed Consent: The patient's anesthetic plan and its attendant risks and benefits were discussed with the patient/family/POA. Questions were solicited and answers provided to the satisfaction of the patient/family/POA.
[2024-02-13] MEDS: LACTATED RINGERS 1,000 ML 30 ML IV CONT (07:15)
[2024-02-13] MEDS: ceFAZolin 3 GM/D5W 100 ML 100 ML IVPB (07:26)
--- NOTE | 2024-02-13 07:55 | W.PM.PROC2 ---
Procedure Note - Detailed Date of Procedure 02/13/24 Pre-op Diagnosis Left renal stones x3 Post-op Diagnosis Same Procedure Performed Left ESWL Surgeon Gerardo Lee MD Anesthesia General Description of Procedure The patient was brought to the operative suite where he was placed in the supine position on the Dornier lithotripsy table. The focal point of the lithotripter was placed at a 3 stones in left kidney. A total of 2500 shocks were delivered at a power setting of 4. The shocks were split between the 3 stones in his left kidney. There appeared to be good fragmentation of the stone. The patient tolerated the procedure well and was taken to the recovery room in good condition.
[2024-02-13] MEDS: oxyCODONE HCL (*CRX) 5 MG TAB IR PO (09:17)
== END 2024-02-13 10:03 | disposition home or self-care (01) ==
PROVIDERS: PCP Family Medicine; Visit Provider Urology
PROC: (CPT 50590; principal; 2024-02-13 08:30)
DX: N20.0 Calculus of kidney (principal); I10 Essential (primary) hypertension; J45.909 Unspecified asthma, uncomplicated; E78.5 Hyperlipidemia, unspecified; E03.9 Hypothyroidism, unspecified; M10.9 Gout, unspecified; Z79.51 Long term (current) use of inhaled steroids; E66.9 Obesity, unspecified; Z68.38 Body mass index [BMI] 38.0-38.9, adult
CPT/HCPCS: 50590; 36415; 74018; 85610; 85730; 87086; 93005; A9270; J0690; J1100; J2003; J2405; J2704; J3010; J7120

== ENCOUNTER 2024-02-17 00:50 | Observation (INO) | payer OTHER, SELFPAY ==
[2024-02-17] VITALS (18 sets, daily range): BP systolic 104–142; BP diastolic 53–89; PULSE 65–107; RESP 12–22; TEMP 36–36.8; O2SAT 94–100; BMI 39.8
--- NOTE | ~2024-02-17 | CT_ITS ---
Non-contrast CT scan of the Abdomen and Pelvis Clinical indication: Kidney stones Technique: 2.5 mm axial scans were obtained through the abdomen and pelvis without intravenous or or al contrast. Dose reduction technique was used on this scan by utilizing automated exposure control a nd iterative reconstruction technique. The dose-length product (DLP) was 1278.55 mGy-cm. COMPARISON: 01/20/2022 Findings: Images through the lung bases reveal no abnormalities. Multiple bilateral nonobstructing renal stones are present, measuring up to 9 mm in diameter in the l eft kidney, and 4 mm in diameter in the right kidney. No right ureteral stone or right hydronephrosis there is a 4 mm distal left ureteral stone. There is an additional 2 mm stone at the left UVJ. There is mild fullness of the left renal collecting system and left ureter.. The liver, spleen, pancreas, gallbladder, and adrenals appear normal. There is no aortic aneurysm. There is no evidence of bowel obstruction. Images through the pelvis were performed. There is no evidence of ascites or lymphadenopathy. Urinary bladder otherwise unremarkable. No pelvic mass seen. Impression: 4 mm distal left ureteral stone and 2 mm left UVJ stone. Associated mild left hydroureteronephrosis. Multiple additional bilateral nonobstructing renal stones, as detailed above. Reviewed, dictated and finalized at location . Impression: 4 mm distal left ureteral stone and 2 mm left UVJ stone. Associated mild left h ydroureteronephrosis. Multiple additional bilateral nonobstructing renal stones, as detailed above.
--- NOTE | ~2024-02-17 | XR_ITS ---
EXAMINATION: XR retrograde pyelo w/stent LT DATE: 02/17/2024 16:10 INDICATION: Left ureteral stone. TECHNIQUE: 65 intraoperative fluoroscopic views of the abdomen and pelvis were obtained. I was not pr esent. Fluoroscopy exposure time was 70 seconds. COMPARISON: CT abdomen and pelvis 02/17/2024 FINDINGS: The left-sided retropyelogram demonstrates mild hydronephrosis. There is a left internal ur eteral stent in expected position. IMPRESSION: 1. Mild left hydronephrosis. 2. Left internal ureteral stent in expected position. Reviewed, dictated and finalized at location A.
[2024-02-17 01:13] LABS: Basophils Absolute Auto 0.1 K/mm3 (0.0-0.1); Basophils Percent Auto 0.9 % (0.2-1.2); Eosinophils Absolute Auto 0.4 K/mm3 (0-0.3); Eosinophils Percent Auto 3.7 % (0-4.4); Hematocrit 47.2 % (42.0-52.0); Hemoglobin 15.8 g/dL (14.0-18.0); Immature Granulocyte Absolute 0.02 K/mm3 (0.00-0.031); Immature Granulocyte Percent A 0.2 % (0-0.5); Lymphocytes Absolute Auto 4.86 K/mm3 (0.9-3.2); Lymphocytes Percent Auto 43.7 % (18.3-44.2); Mean Corpuscular HGB Conc 33.5 g/dl (32-36); Mean Corpuscular Hemoglobin 30.4 pg (26-34); Mean Corpuscular Volume 90.9 fl (80-100); Mean Platelet Volume 10.2 fl (7.4-10.4); Monocytes Absolute Auto 1.4 K/mm3 (0.1-0.6); Monocytes Percent Auto 12.1 % (2.6-8.5); Neutrophils Absolute Auto 4.4 K/mm3 (1.3-6.7); Neutrophils Percent Auto 39.4 % (45.5-73.1); Platelet Count Result 270 k/mm3 (150-375); Red Blood Count 5.19 M/mm3 (4.6-6.20); Red Cell Distribution Width 12.9 % (11.5-14.5); White Blood Count 11.1 K/mm3 (4.5-10.0)
[2024-02-17] MEDS: HYDROmorphone HCL INJ (*CRX) 1 MG/ML SYR IV PUSH (01:18)
[2024-02-17] MEDS: ONDANSETRON INJ 4 MG/2 ML VIAL IV PUSH (01:21)
[2024-02-17] MEDS: TAMSULOSIN HCL 0.4 MG CAPSULE PO (01:22)
[2024-02-17] MEDS: LACTATED RINGERS 1,000 ML 999 ML IV CONT (01:22)
[2024-02-17 01:23] LABS: Add Urine Microscopic? YES; Appearance Urine Clear (Clear); Bacteria Urine None Seen /hpf; Bilirubin Urine Negative (Negative); Blood Urine 3+ (Negative); Color Urine Yellow (Yellow); Glucose Urine UA Negative (Negative); Ketones Urine Negative (Negative); Leukocyte Esterase Ur Negative LEU/UL (Negative); Nitrate Urine Negative (Negative); Non Pathogenic Casts 0-2; Protein Urine Negative (Negative); RBC Urine >100 /hpf (0-2); Specific Grav Ur 1.013 (1.001-1.035); Squamous Epithelial Cell Urine None Seen /hpf (Few); Urobilinogen Urine 0.2 mg/dL (<2.0); WBC Urine 0-5 /hpf (0-3); pH Urine 5.5 (5.0-9.0)
[2024-02-17 01:28] LABS: Alanine Aminotransferase 29 U/L (6-50); Albumin Level 4.3 g/dL (3.5-5.1); Alkaline Phosphatase 57 U/L (38-126); Anion Gap 12 mmol/L (4-12); Aspartate Amino Transferase 34 U/L (17-59); Bilirubin,Total 0.7 mg/dL (0.2-1.3); Blood Urea Nitrogen 16 mg/dL (9-20); Calcium 9.3 mg/dL (8.4-10.2); Carbon Dioxide 25 mmol/L (22-30); Chloride 100 mmol/L (98-107); Estimated CRCL calculation 98 ml/min; Estimated Glomerular Filt Rate > 60; Glucose 115 mg/dL (65-110); Potassium 3.7 mmol/L (3.4-5.0); Sodium 137 mmol/L (137-145)
--- NOTE | 2024-02-17 02:26 | ED.ABDPAIN ---
HPI - Abdominal Pain General Chief Complaint: Abdominal Pain Stated Complaint: abd pain Time Seen by Provider: 02/17/24 01:14 History of Present Illness HPI narrative: 48-year-old male with a past medical history significant for kidney stones most recently undergone a lithotripsy of his left renal stone x3 on the by Dr. Lee. patient states he went home after the procedure feeling well but suddenly had onset of pain in his left low back and left flank approximately 1 hour prior to arrival. He has had decreased urination And pain with urination. States he feels nauseous with abdominal pain. States this pain is exactly the same abdominal pain he had was kidney stone was 1st found. Denies any passage of stones or hematuria. No fever, chills, Chest pain, shortness a breath, vomiting, headache, vision changes. Related Data Home Medications Medication Instructions Recorded Confirmed ibuprofen 200 mg tablet (Advil) 200 mg PO Q6H PRN Pain 11/23/19 02/03/24 olmesartan 20 mg tablet 20 mg PO DAILY 06/10/23 02/03/24 Allergies Allergy/AdvReac Type Severity Reaction Status Date / Time No Known Allergies Allergy Verified 02/13/24 07:20 Review of Systems Review of Systems: As reviewed above in HPI [facility] Past Medical History Medical History Adhesive capsulitis of shoulder Asthma Diverticulitis (~12/2018) Dyslipidemia Gout HTN (hypertension) improved with weight loss Hypothyroid Left shoulder pain Right bundle branch block Right renal stone (~06/2018) Right ureteral stone (~03/2022) Surgical History Surgical History History of nasal septoplasty (~2014) Family History Family History Mother Acute myocardial infarction Unknown Asthma Hypertension Lung disease Arthritis Social History Social History Social History: Caffeine- coffee Smoking status: Never smoker Alcohol intake: never Substance use: never Substance use type: does not use Lack of Transportation: No Lack of Food: Never True Current Housing: I Have Housing Concerned About Future Housing: No Difficulty Paying Gas/Electric Bills: No Difficulty Paying for Meds: No Currently Unemployed: No Education: Master's Degree or Higher Difficulty w/ Childcare or Family Care: No Living arrangements: with family Additional living arrangements comments: & CHILDREN 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: occupation 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 Pointing towards his left flank from the pain source.] HEAD: [Normocephalic, atraumatic.] EYES: [PERRLA and EOMI.] ENT: Nares clear, no rhinorrhea or epistaxis. Mucous membranes moist. NECK: Supple. CHEST: [Clear to auscultation. No respiratory distress.] HEART: [Regular rate and rhythm]. No murmur heard. [Normal peripheral pulses.] ABDOMEN: [Soft, nondistended], [ Tenderness to palpation left flank and left lower quadrant, no distention, rigidity guarding], EXTREMITIES: Normal range of motion. [No edema.] SKIN: Warm, dry, no rash. NEURO: [No focal deficits]. Alert and oriented [x3.] PSYCH: [Normal mood and affect.] Course Vital Signs Vital signs: Vital Signs Temperature 36.4 C L 02/17/24 00:51 Pulse Rate 88 02/17/24 00:51 Respiratory Rate 14 02/17/24 00:51 Blood Pressure 141/89 H 02/17/24 00:51 Pulse Oximetry 100 02/17/24 00:51 Oxygen Delivery Room Air 02/17/24 00:51 Temperature 36.7 C 02/17/24 04:37 Puls
[2024-02-17] MEDS: HYDROmorphone HCL INJ (*CRX) 1 MG/ML SYR 0.5 MG IV PUSH ×3 (04:49→13:13)
[2024-02-17] MEDS: LACTATED RINGERS 1,000 ML 125 ML IV CONT ×2 (05:02→09:53)
[2024-02-17] MEDS: HYDROcodone/acetaminophen (*CRX) 5-325 MG TABLET 2 TAB PO ×3 (06:29→17:50)
--- NOTE | 2024-02-17 09:24 | WPDURCON ---
Assessment and Plan Assessment and plan (1) Hydronephrosis with renal and ureteral calculous obstruction: Code(s): N13.2 - Hydronephrosis with renal and ureteral calculous obstruction Status: Acute Assessment and Plan: S/p left ESWL 02/13/2024 now with distal left ureteral stones and mild left hydro. Will plan for cystoscopy with left ureteroscopy, possible left stone extraction/holmium laser lithotripsy, and possible left stent placement this afternoon wt Dr. Lee. Discussed details of procedure, risks, and benefits with patient and he is agreeable to proceed. Continue NPO diet. Urology Consult Note HPI Date Seen: 02/17/24 Requesting Physician: Julienne Pascal DO Primary Care Provider: Milton Rutledge MD Consult Narrative Narrative: Zach Loomis is a 48 year old male with a history of left renal stones who underwent left ESWL on 02/13/2024 who is being seen in consultation for left flank pain. Patient was doing well following his procedure and recovery was uneventful until early this morning he woke up to urinate and had onset of severe left flank pain that did not improve with [place]. He presented to the emergency department for evaluation. On arrival, his vital signs were stable and he was afebrile, WBC minimally elevated at 11.1, additional laboratory workup unremarkable, UA with 3+ blood, negative leukocytes or nitrates. A CT of the abdomen/pelvis was completed which showed 4 mm distal left ureteral stone and 2 mm left UVJ stone with mild left hydronephrosis. At the time of my evaluation, patient reports feeling improved with IV analgesics though still having persistent pain. Denies nausea, vomiting, fever, or chills. He does report decreased flow of urination and occasional dysuria. Denies hematuria. Review of Systems Review of Systems: All systems reviewed & are unremarkable except as noted in HPI and below PMFSH Past Medical History Medical History Adhesive capsulitis of shoulder Asthma Diverticulitis (~12/2018) Dyslipidemia Gout HTN (hypertension) improved with weight loss Hypothyroid Left shoulder pain Right bundle branch block Right renal stone (~06/2018) Right ureteral stone (~03/2022) Surgical History Surgical History History of nasal septoplasty (~2014) Family History Family History Mother Acute myocardial infarction Unknown Asthma Hypertension Lung disease Arthritis Social History Social History Social History: Caffeine- coffee Smoking status: Never smoker Alcohol intake: never Substance use: never Substance use type: does not use Do You Feel Safe in your Home?: Yes Lack of Transportation: No Lack of Food: Never True Current Housing: I Have Housing Concerned About Future Housing: No Difficulty Paying Gas/Electric Bills: No Difficulty Paying for Meds: No Currently Unemployed: No Education: Master's Degree or Higher Difficulty w/ Childcare or Family Care: No Living arrangements: with family Additional living arrangements comments: & CHILDREN 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: occupation 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
--- NOTE | 2024-02-17 11:48 | PM.IMHP ---
H&P: HPI History of Present Illness Date/Time: 02/17/24 11:48 Chief Complaint: abdominal pain Narrative: This is a 48-year-old male with a significant past medical history of kidney stones who presented to the hospital today with complaint of abdominal pain. Patient recently had lithotripsy of his left renal stone on the with Dr. Lee. He left that day feeling fine but then this morning started having pain in his left low back and left flank earlier today. He also reported decreased urination, Dysuria, and nausea. He states that this pain was similar to the pain he experienced with his 1st kidney stone. Patient reports nausea and 10/10 back pain that radiates to lower abdomen. He denies any fever, chills, vomiting, diarrhea, chest pain or shortness of breath. Workup in the hospital included an abdomen/ pelvis CT which shown a 4 mm distal left ureteral stone and 2 mm left UVJ stone, associated mild left hydroureteronephrosis, multiple additional bilateral nonobstructing renal stones. Initial labs include a white blood cell count of 11.1, otherwise unremarkable. UA showed 3+ urine blood, greater than 100 urine RBC otherwise unremarkable. Patient was given 1 L of LR, Zofran, Flomax, and dilaudid while in the ED. Urology was consulted and plans for cystoscopy today. Review of Systems Review of Systems: All systems reviewed & are unremarkable except as noted in HPI and below Constitutional: Constitutional: Reports as per HPI and Reports no additional constitutional complaints Eyes: Eyes: Reports as per HPI and Reports no additional eye complaints ENT: Reports system reviewed and no additional complaints, except as documented and Reports as per HPI Cardiovascular: Cardiovascular: Reports as per HPI and Reports no additional cardiovascular complaints Respiratory: Respiratory: Reports as per HPI and Reports no additional respiratory complaints Gastrointestinal: Gastrointestinal: Reports as per HPI and Reports no additional gastrointestinal complaints Genitourinary: Genitourinary: Reports no additional male genitourinary complaints and Reports as per HPI Musculoskeletal: Musculoskeletal: Reports no additional musculoskeletal complaints and Reports as per HPI Integumentary/Breasts: Skin/Breast: Reports system reviewed and no additional complaints, except as docu and Reports as per HPI Neurologic: Reports system reviewed and no additional complaints, except as documented and Reports as per HPI Psychiatric: Psychiatric: Reports no additional psychiatric complaints and Reports as per HPI [facility] Past Medical History Medical History Adhesive capsulitis of shoulder Asthma Diverticulitis (~12/2018) Dyslipidemia Gout HTN (hypertension) improved with weight loss Hypothyroid Left shoulder pain Right bundle branch block Right renal stone (~06/2018) Right ureteral stone (~03/2022) Surgical History Surgical History History of nasal septoplasty (~2014) Family History Family History Mother Acute myocardial infarction Unknown Asthma Hypertension Lung disease Arthritis Social History Social History Social History: Caffeine- coffee Smoking status: Never smoker Alcohol intake: never Substance use: never Substance use type: does not use Do You Feel Safe in your Home?: Yes Lack of Transportation: No Lack of Food: Never True Current Housing: I Have Housing Concerned About Future Housing: No Difficulty Paying Gas/Electric Bills: No Difficulty Paying for Meds: No Currently Unemployed: No Education: Master's Degree or Higher Difficulty w/ Childcare or Family Care: No Living arrangements: with family Additional living arrangements comments: & CHILDREN 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: oc
--- NOTE | 2024-02-17 14:07 | PC.NURSE ---
To OR per stretcher.
--- NOTE | 2024-02-17 14:14 | WPDANESEPPF ---
Anes - Initial Pre Proc Eval Procedure: Operation Date: 02/17/24 15:45 Proposed Procedures p Cystoscopy, Left Ureteroscopy, Possible Left Retrograde Pyelogram, Possible Left Stone Extraction, Possible Left Stent Placement, Possible Holmium Laser - Gerardo Lee MD Date/Time: 02/17/24 14:14 Surgeon: Julienne Pascal DO Pre Op Diagnosis: Obstructing left-sided kidney stones Patient Data Age: 48 Gender: M Height: 1.85 m Weight: 136.9 kg Last Vital Signs Temp 36.6 C 02/17/24 05:43 Pulse 68 02/17/24 05:43 Resp 18 02/17/24 05:43 BP 132/79 02/17/24 05:43 Pulse Ox 97 02/17/24 08:56 O2 Del Method Room Air 02/17/24 08:56 O2 Flow Rate 2 02/17/24 02:11 Allergies Allergy/AdvReac Type Severity Reaction Status Date / Time No Known Allergies Allergy Verified 02/17/24 04:55 Home Medications Medication Instructions Recorded Confirmed Type ibuprofen 200 mg tablet (Advil) 200 mg PO Q6H PRN Pain 11/23/19 02/17/24 History albuterol sulfate 90 mcg/actuation 1 puff inhalation Q4H PRN 01/20/23 02/17/24 Rx aerosol inhaler shortness of breath or wheezing #6.7 grams olmesartan 20 mg tablet 20 mg PO DAILY 06/10/23 02/17/24 History allopurinol 300 mg tablet 300 mg PO DAILY #90 tabs 10/10/23 02/17/24 Rx levothyroxine 150 mcg tablet 150 mcg PO DAILY #30 tabs 01/19/24 02/17/24 Rx hydrocodone 5 mg-acetaminophen 325 1 - 2 tablet PO Q6H PRN pain #20 02/13/24 02/17/24 Rx mg tablet tabs Laboratory Tests 02/17/24 02/17/24 01:06 01:13 WBC 11.1 H K/mm3 (4.5-10.0) RBC 5.19 M/mm3 (4.6-6.20) Hgb 15.8 g/dL (14.0-18.0) Hct 47.2 % (42.0-52.0) MCV 90.9 fl (80-100) MCH 30.4 pg (26-34) MCHC 33.5 g/dl (32-36) RDW 12.9 % (11.5-14.5) Plt Count 270 k/mm3 (150-375) MPV 10.2 fl (7.4-10.4) Immature Gran % (Auto) 0.2 % (0-0.5) Neut % (Auto) 39.4 L % (45.5-73.1) Lymph % (Auto) 43.7 % (18.3-44.2) [place] % (Auto) 12.1 H % (2.6-8.5) Eos % (Auto) 3.7 % (0-4.4) Baso % (Auto) 0.9 % (0.2-1.2) Lymph # (Auto) 4.86 H K/mm3 (0.9-3.2) Franklin # (Auto) 1.4 H K/mm3 (0.1-0.6) Eos # (Auto) 0.4 H K/mm3 (0-0.3) Baso # (Auto) 0.1 K/mm3 (0.0-0.1) Abs Immat Gran (auto) 0.02 K/mm3 (0.00-0.031) Absolute Neuts (auto) 4.4 K/mm3 (1.3-6.7) Absolute Nucleated RBC 0.000 K/mm3 (0.0-0.012) Nucleated RBC % 0.0 % (0.0-0.2) Sodium 137 mmol/L (137-145) Potassium 3.7 mmol/L (3.4-5.0) Chloride 100 mmol/L (98-107) Carbon Dioxide 25 mmol/L (22-30) Anion Gap 12 mmol/L (4-12) BUN 16 mg/dL (9-20) Creatinine 1.20 mg/dL (0.7-1.3) Estim Creat Clear Calc 98 ml/min Estimated GFR > 60 (59 - ) Glucose 115 H mg/dL (65-110) Calcium 9.3 mg/dL (8.4-10.2) Total Bilirubin 0.7 mg/dL (0.2-1.3) AST 34 U/L (17-59) ALT 29 U/L (6-50) Alkaline Phosphatase 57 U/L (38-126) Total Protein 8.0 g/dL (6.3-8.2) Albumin 4.3 g/dL (3.5-5.1) Urine Color Yellow (Yellow) Urine Appearance Clear (Clear) Urine pH 5.5 (5.0-9.0) Ur Specific [place] 1.013 (1.001-1.035) Urine Protein Negative mg/dL (Negative) Urine Glucose (UA) Negative mg/dL (Negative) Urine Ketones Negative mg/dL (Negative) Ur Blood (Man) 3+ H (Negative) Urine Nitrate Negative (Negative) Urine Bilirubin Negative (Negative) Urine Urobilinogen 0.2 mg/dL (<2.0) Leukocyte Esterase Rfl Negative JOSE/UL (Negative) Urine RBC >100 H /hpf (0-2) Urine WBC 0-5 /hpf (0-3) Ur Squamous Epith Cells None seen /hpf (Few) Urine Bacteria None seen /hpf Urine Casts 0-2 Patient hx anesthesia problems: none Family hx anest
[2024-02-17] MEDS: LIDOCAINE HCL 2% GEL UROJET 10 ML PKG MUCOUS MEM (14:55)
--- NOTE | 2024-02-17 14:57 | WPDHPUPDATE1 ---
History and Physical Update Update Date/Time: 02/17/24 14:57 History and Physical has been reviewed, including an updated exam of the patient. There are NO changes in the patient's condition. Risks, benefits, and alternatives have been discussed and questions answered. Patient agrees to proceed with procedure.
[2024-02-17] MEDS: LACTATED RINGERS 1,000 ML 30 ML IV CONT (15:07)
--- NOTE | 2024-02-17 16:07 | W.PM.PROC2 ---
Procedure Note - Detailed Date of Procedure 02/17/24 Pre-op Diagnosis Left ureteral and renal stones Post-op Diagnosis Same Procedure Performed Cystoscopy left retrograde pyelography, left ureteroscopy with stone extraction, laser lithotripsy left renal calculi Surgeon Gerardo Lee MD Anesthesia General Description of Procedure Patient is brought to the operative suite where he was prepped and draped in routine sterile fashion while in dorsal lithotomy position after the uneventful induction of a general LMA anesthetic. Cystoscopy was undertaken 19 F rigid cystoscope. He has a very high bladder neck with minimal prostatic hyperplasia. A can see a small stone protruding from his left ureteral orifice. A 0.035 in glidewire was advanced in left renal pelvis under fluoroscopy. The distal ureter was dilated with an 8 F 10 F dilator. Ureteroscopy was 1st undertaken with a short tapered semi-rigid ureteral scope. He had for 5 small stone fragments which I extracted with a 1.9 F disposable basket. I could not get the rigid ureteral scope to advance any more than 10-12 cm upper ureter. Because of his high bladder neck and did feel placement of an access sheath was possible so I simply placed a 7.5 F digital flexible still into his left renal pelvis. Retrograde pyelography was obtained ensure inspection of all calices. The only sizable stone he had in his left kidney was in the lower pole calyx which very hard to reach with the flexible ureteral scope. I was able to dust the stone fragments using a 200 micron Neptali laser fiber. Again because of the angulation into his lower pole calyx I was unable to grasp any fragments but they should be small enough to allow spontaneous passage. Fragments were estimated to be 3 mm or less. I removed the ureteral scope and placed a 4.8 F variable length stent with proximal coil in the renal pelvis and distal coil the bladder. Scopes and wires were removed and he was taken to recovery room good in condition. Urine Output 400 Drains Yes Packing No Pathology Yes Complications No immediate complications
--- NOTE | 2024-02-17 16:55 | PC.NURSE ---
Returned from OR per stretcher.
[2024-02-17] MEDS: LEVOTHYROXINE SODIUM 150 MCG TABLET PO (17:06)
[2024-02-17] MEDS: allopurinoL 300 MG TABLET PO (17:06)
[2024-02-18] MEDS: LACTATED RINGERS 1,000 ML 125 ML IV CONT ×2 (00:06→05:33)
[2024-02-18 00:18] VITALS: BP 122/60; PULSE 63; RESP 16; TEMP 36.2; O2SAT 95
[2024-02-18] MEDS: LEVOTHYROXINE SODIUM 150 MCG TABLET PO (05:31)
[2024-02-18 06:09] VITALS: BP 107/66; PULSE 88; RESP 16; TEMP 36.9; O2SAT 100
--- NOTE | 2024-02-18 07:29 | WPDUROPN2 ---
Progress Note: A&P Assessment and Plan (1) Hydronephrosis with renal and ureteral calculous obstruction: Code(s): N13.2 - Hydronephrosis with renal and ureteral calculous obstruction Status: Acute Assessment and Plan: Doing well following stone extraction and stent placement Will plan discharge today with stent removal in 5-6 days Subjective Subjective Date/Time Seen: 02/18/24 07:29 Interval history: Comfortable, slept well and tolerating stent Review of Systems Cardiovascular: Cardiovascular: Denies chest pain, Denies lightheadedness, Denies palpitations and Denies dyspnea Respiratory: Respiratory: Denies dyspnea Gastrointestinal: Gastrointestinal: Denies diarrhea, Denies nausea and Denies vomiting Genitourinary: Genitourinary: Denies hematuria and Denies dysuria Endocrine: Endocrine: Denies palpitations Exam Const: General: no acute distress Resp: Effort & Inspection: normal respiratory effort GI: Inspection: non-distended GI Palp: No abdominal tenderness and No Guarding due to palpation present (GI) Auscultation: normal bowel sounds Objective Data Vital Signs Vital Signs: Vital Signs - 24 hr 02/17/24 08:00 02/17/24 08:56 02/17/24 14:15 Temperature 97.8 F Pulse Rate 79 Respiratory Rate 14 Blood Pressure 121/66 Pulse Oximetry 97 94 Oxygen Delivery Room Air Room Air Room Air Oxygen Flow Rate 02/17/24 16:09 02/17/24 16:24 02/17/24 16:30 Temperature 97.6 F Pulse Rate 107 H 104 H 98 Respiratory Rate 13 16 12 Blood Pressure 128/70 136/85 131/87 Pulse Oximetry 100 100 97 Oxygen Delivery Simple Face Mask Room Air Room Air Oxygen Flow Rate 8 02/17/24 16:45 02/17/24 17:00 02/17/24 17:15 Temperature 96.8 F L 97.1 F L Pulse Rate 95 100 100 Respiratory Rate 12 22 H 20 Blood Pressure 136/79 140/89 142/88 H Pulse Oximetry 100 99 100 Oxygen Delivery Room Air Oxygen Flow Rate 02/17/24 17:45 02/17/24 18:45 02/17/24 20:29 Temperature 97.9 F 98.1 F 97.7 F Pulse Rate 100 91 87 Respiratory Rate 20 20 16 Blood Pressure 140/80 134/72 104/53 L Pulse Oximetry 100 98 98 Oxygen Delivery Oxygen Flow Rate 02/18/24 00:18 02/18/24 06:09 Temperature 97.1 F L 98.4 F Pulse Rate 63 88 Respiratory Rate 16 16 Blood Pressure 122/60 107/66 Pulse Oximetry 95 100 Oxygen Delivery Oxygen Flow Rate Intake/Output Intake/Output: Intake & Output 02/15/24 02/16/24 02/17/24 02/18/24 23:59 23:59 23:59 23:59 Intake Total 2780 1081.3 Output Total 1500 1300 Balance 1280 -218.7 Meds/Results Medications: Active Medications Generic Name Dose Route Start Last Admin Trade Name Freq PRN Reason Stop Dose Admin Acetaminophen 650 mg 02/17/24 04:46 Acetaminophen 325 Mg Tablet PO Q4H PRN Mild Pain (1-3) or Fever Hydrocodone Bitart/Acetaminophen 2 tab 02/17/24 04:46 02/17/24 17:50 Hydrocodone/Acetaminophen (*Crx) 5-325 Mg Tablet PO 2 tab Q4H PRN Administration Pain Rated 7-10 Albuterol 1 puff 02/17/24 16:55 Albuterol Sulfate (*Sp) Aerosol 1 Puff INHALATION Q4HRT PRN shortness of breath or wheezing Allopurinol 300 mg 02/17/24 12:10 02/17/24 17:06 Allopurinol 300 Mg Tablet PO 300 mg DAILY WOODY Administration Fentanyl Citrate 25 mcg 02/17/24 14:15 Fentanyl Citrate Inj (*Crx) 100 Mcg/2 Ml Vial IV PUSH Q2M PRN Pain Hydromorphone HCl 0.5 mg 02/17/24 04:46 02/17/24 13:13 Hydromorphone Hcl Inj (*Crx) 1 Mg/Ml Syr IV PUSH 0.5 mg Q4H PRN Administration Pain Rated 7-10 Lactated Ringer's 1,000 mls @ 125 mls/hr 02/17/24 04:50 02/18/24 05:33 Lr - Lactated Ringers Iv IV CONT 125 mls/hr .Q8H WOODY Administration Ibuprofen 200 mg 02/17/24 16:55 Ibuprofen 200 Mg Tablet PO Q6H PRN Pain 4-6 Levothyroxine Sodium 150 mcg 02/17/24 14:00 02/18/24 05:31 Levothyroxine Sodium 150 Mcg Tablet PO 150 mcg DAILY@0630 WOOYD Administration Olmesar
--- NOTE | 2024-02-18 07:32 | PM.DS ---
DS: Admitting Diagnosis Discharge Date 03/20/2024 Admitting Diagnosis Left ureteral and renal stones DS: Discharge Diagnosis Discharge Diagnosis (1) Hydronephrosis with renal and ureteral calculous obstruction: Code(s): N13.2 - Hydronephrosis with renal and ureteral calculous obstruction Status: Acute DS: Summary Hospital Course Hospital Course: Patient was status post ESWL several stones in his left kidney. He presented to the ER couple days later with left renal colic and imaging showing 2 small stones in his ureter and larger residual fragment in his kidney. Following morning he underwent endoscopic extraction of the ureteral stone in laser lithotripsy of the more proximal stones. A stent was placed. The following day he was comfortable. He will be discharged with plans to remove the stent in 5-6 days. Time Spent with Patient Time attestation: Total time spent providing and/or coordinating discharge services: DS: Data Data Completed and Pending Pending studies at discharge: Pending at discharge 02/17/24 15:51 Surgical [PTH] Routine Discharge Plan Discharge Attending physician on discharge: Giuliano Harmon Consulting providers: Giuliano Harmon Discharging Clinician: Gearrdo Lee Patient Disposition: Home, Self-Care Activity: as tolerated Diet: as tolerated Patient Instructions: Antibiotic Form, Pain Management (DC) Stand Alone Forms: General Discharge Information Follow-up/Referrals: Gerardo Lee MD [Physician] - Discharge Medications: New hydrocodone-acetaminophen 5-325 mg tablet 1 - 2 tablet PO Q6H PRN (Reason: pain) Qty: 20 0RF cephalexin 500 mg capsule 500 mg PO Q8H Qty: 15 0RF Continued albuterol sulfate 90 mcg/actuation HFA aerosol inhaler 1 puff inhalation Q4H PRN (Reason: shortness of breath or wheezing) Qty: 6.7 2RF ibuprofen [Advil] 200 mg tablet 200 mg PO Q6H PRN (Reason: Pain) hydrocodone-acetaminophen 5-325 mg tablet 1 - 2 tablet PO Q6H PRN (Reason: pain) Qty: 20 0RF olmesartan 20 mg tablet 20 mg PO DAILY allopurinol 300 mg tablet 300 mg PO DAILY Qty: 90 1RF levothyroxine 150 mcg tablet 150 mcg PO DAILY Qty: 30 0RF Date of admission: 02/17/24 04:46 Primary Care Provider: Tiffanie Rutledge Admitting Provider: Julienne Pascal Attending physician on admission: Julienne Pascal Condition: Stable
[2024-02-18] MEDS: OLMESARTAN MEDOXOMIL 20 MG TABLET PO (08:05)
[2024-02-18] MEDS: allopurinoL 300 MG TABLET PO (08:05)
--- NOTE | 2024-02-18 09:56 | PC.NURSE ---
Pt is A&O6 male who participated and contributed in plan of care. Pt reported minimal discomfort from stents. Pt refused any pain medication. Pt verbalized understanding of discharge instructions. Pt was given follow up appointment for stent removal. Work release was given to pt to return tomorrow 02/19/2024. Pt was monitored for any changes in status while here. Pt refused wheel chair to car and walked off unit with .
--- NOTE | 2024-02-18 10:38 | P.PNCROSS_ITS ---
Event Note Event Note Event Note: Patient was discharged by consulting team and was already gone by the time I ro unded.
== END 2024-02-18 08:35 | disposition home or self-care (01) ==
LOC: ANHED 04:51 → ANH3MEDSUR 05:10
PROVIDERS: Admitting Provider Internal Medicine; Emergency Provider Student in an Organized Health Care Education/Training Program; PCP Family Medicine; Visit Provider Urology
PROC: (CPT 52352; principal; 2024-02-17 15:45)
DX: N13.2 Hydronephrosis with renal and ureteral calculous obstruction (principal); Z87.442 Personal history of urinary calculi; N40.0 Benign prostatic hyperplasia without lower urinary tract symptoms; Z98.890 Other specified postprocedural states; E66.01 Morbid (severe) obesity due to excess calories; Z68.39 Body mass index [BMI] 39.0-39.9, adult; E03.9 Hypothyroidism, unspecified; E78.5 Hyperlipidemia, unspecified; M10.9 Gout, unspecified; J45.909 Unspecified asthma, uncomplicated; I45.10 Unspecified right bundle-branch block; M75.00 Adhesive capsulitis of unspecified shoulder; Z79.51 Long term (current) use of inhaled steroids; Z79.899 Other long term (current) drug therapy
CPT/HCPCS: 52356; 36415; 74176; 74420; 80053; 81001; 82365; 85025; 88300; 96361; 96374; 96375; 96376; 99285; A9270; C1769; C2617; G0378; J0690; J1100; J1171; J1596; J2003; J2250; J2371; J2405; J2704; J3010; J7120; Q9966

== ENCOUNTER 2024-02-23 13:26 | Outpatient (CLI) | payer OTHER, SELFPAY ==
--- NOTE | ~2024-02-23 | XR_ITS ---
XR abdomen/kub 1V Ordering provider: Gerardo Lee MD History: . Calculus of kidney REVIEW DETAILED NOTES IN PACS . Comparison: None. FINDINGS: BOWEL: Nonobstructive bowel gas pattern. ORGANOMEGALY: None. SIGNIFICANT PATHOLOGIC CALCIFICATIONS: Stone seen in the left kidney lower pole. Smaller stones are s een in the mid and upper pole. Left double-J stent. Stone is seen adjacent to the inferior double-J s tent with possible stone in the urinary bladder. OTHER: No free air is seen under the diaphragm. IMPRESSION: NO ACUTE ABDOMINAL FINDINGS. Stones in the left kidney. Left double-J stent. Stone in the left lower ureter. Reviewed, dictated and finalized at location A.
== END 2024-02-23 13:27 | disposition home or self-care (01) ==
PROVIDERS: PCP Family Medicine; Visit Provider Urology
DX: N20.0 Calculus of kidney (principal)
CPT/HCPCS: 74018

== ENCOUNTER 2024-03-12 10:45 | Outpatient (CLI) | payer OTHER, SELFPAY ==
--- NOTE | ~2024-03-12 | XR_ITS ---
EXAMINATION: XR abdomen/kub 1V DATE: 03/12/2024 11:06 INDICATION: Left kidney stone. TECHNIQUE: A supine view of the abdomen on 3 radiographs was obtained. COMPARISON: Abdomen radiographs 02/23/2024, CT abdomen and pelvis 02/17/2024 FINDINGS: There are no dilated loops of bowel. There is a 4 mm stone in right kidney. There are multi ple stones in left kidney measuring up to approximately 2 mm. IMPRESSION: 1. Bilateral kidney stones. Reviewed, dictated and finalized at location A. ICIAN CHIEF OF PATHOLOGY IMPRESSION: 1. Bilateral kidney stones.
== END 2024-03-12 10:46 | disposition home or self-care (01) ==
PROVIDERS: PCP Family Medicine; Visit Provider Urology
DX: N20.0 Calculus of kidney (principal)
CPT/HCPCS: 74018

== ENCOUNTER 2024-06-09 08:46 | Emergency (ER) | payer OTHER, SELFPAY ==
--- NOTE | 2024-06-09 08:49 | ED_ITS ---
HPI - URI/Sore Throat General Chief Complaint: Upper Respiratory Infection Stated Complaint: CONGESTION/COUGH/WATERY EYES Time Seen by Provider: 06/09/24 08:49 Source: patient Mode of arrival: ambulatory Limitations: no limitations History of Present Illness HPI Narrative: Patient is a 49-year-old male who presents with chest congestion, congestion, postnasal drip and watery eyes for 1 week. has influenza A. Denies any fever, chills, nausea, vomiting, diarrhea. Related Data Allergies Allergy/AdvReac Type Severity Reaction Status Date / Time No Known Allergies Allergy Verified 06/09/24 09:11 Review of Systems Review of Systems: All systems reviewed & are unremarkable except as noted in HPI and below Constitutional: Constitutional: Denies body ache(s), Denies chills, Denies fatigue, Denies fever(s), Denies headache(s), Denies malaise and Denies weakness Eyes: Eyes: Denies blurry vision, Denies itchy eyes and Denies loss of vision ENT: Denies otalgia, Denies headache(s), Reports nasal congestion, Denies sinus pain and Denies sore throat Cardiovascular: Cardiovascular: Denies chest pain, Denies irregular heart rhythm and Denies dyspnea Respiratory: Respiratory: Reports chest congestion, Reports cough and Denies dyspnea Gastrointestinal: Gastrointestinal: Denies abdominal pain, Denies diarrhea, Denies nausea and Denies vomiting Musculoskeletal: Musculoskeletal: Denies back pain, Denies myalgias and Denies arthralgias Integumentary/Breasts: Skin/Breast: Denies pruritus and Denies rash Neurologic: Denies headache(s), Denies loss of vision and Denies weakness Psychiatric: Psychiatric: Reports no additional psychiatric complaints Endocrine: Endocrine: Denies fatigue Allergic/Immunologic: Allergic/Immunologic: Denies itchy eyes PMFSH Past Medical History Medical History Essential hypertension Left shoulder pain Adhesive capsulitis of shoulder Asthma Right renal stone (~06/2018) Right ureteral stone (~03/2022) HTN (hypertension) improved with weight loss Dyslipidemia Right bundle branch block Diverticulitis (~12/2018) Hypothyroid Gout Surgical History Surgical History Hx of lithotripsy (~02/2024) left History of nasal septoplasty (~2014) Family History Family History Mother Acute myocardial infarction Unknown Asthma Hypertension Lung disease Arthritis Social History Social History Social History: Caffeine- coffee Smoking status: Never smoker Alcohol intake: never Substance use: never Substance use type: does not use Do You Feel Safe in your Home?: Yes Lack of Transportation: No Lack of Food: Never True Current Housing: I Have Housing Concerned About Future Housing: No Difficulty Paying Gas/Electric Bills: No Difficulty Paying for Meds: No Currently Unemployed: No Education: Master's Degree or Higher Difficulty w/ Childcare or Family Care: No Living arrangements: with family Additional living arrangements comments: & CHILDREN 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: occupation 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 There is no relevant family history pertinent to the presenting complaint. Exam Const: General: cooperative, healthy appearing, comfortable, no acute distress and well nourished Nutritional Appearance: well nourished Orientation/consciousness: patient oriented x3 Limitations: no limitations HENMT: Head: normal to inspection, normocephalic and atraumatic Ears: hearing grossly normal bilaterally, external ears normal, TM's normal bilaterally, EAC's normal and no periauricular adenopathy Face/Nose/Sinus: Normal external nose present, Abnormal mucous membranes and turbinates present erythematous bilateral and diffuse, normal facial exam, sinuses nontender and face symmetric Face and sinus: normal facial exam, sinuses nontender and face symmetric Mouth: Yes Normal oral and palatal mucosa present, Yes lip normal, Yes tongue normal, Yes Normal salivary glands and ducts present, Yes oropharynx normal and Yes moist mucous membranes Teeth and gingiva: dentition normal Throat: posterior oropharynx normal, tonsils normal and uvula midline Eyes: General: appearance normal, both eyes and all related structures Alignment and Position: alignment normal and position normal Periorbital: periorbital findings normal Eyelids: eyelids normal Pupils: Equal, round and reactive pupils present Neck: Neck: normal visual inspection, full ROM, no lymphadenopathy and supple Chest: Chest palpation & inspection: normal inspection of the chest and normal palpation of entire chest wall Resp: Effort & Inspection: normal respiratory effort and able to speak in complete sentences Auscultation: clear to auscultation bilaterally, no crackles, no rales, no rhonchi and no wheezes Cardio: Rate: tachycardic Rhythm: regular rhythm Heart sounds: S1 normal heart sound present and S2 normal heart sound present GI: Inspection: normal to inspection Skin: General skin exam: normal color and no rashes or lesions noted Neuro: General: patient oriented x3 and moves all extremities Cranial nerves: Yes Equal, round and reactive pupils present Speech: normal speech Gait exam (Neuro): Normal gait present Extrem: General: normal to inspection, full ROM and no edema Psych: Appearance: grossly normal and well kempt Mental Status: mental status grossly normal Speech and movement: Normal speech and movement present Affect: normal affect Attitude: cooperative Thought process: Normal thought process present Course Course Emergency Course: Discharge instructions reviewed with patient, as well as provided in writing per nursing staff. The instructions also include specific and strict return/GO TO THE ER as well as f/u information. All questions have been answered, and the patient deny any further questions with discharge and discharge plan. Portions of this record may have been created with voice recognition software Level of Care: Express Care Visit Vital Signs Vital signs: Vital Signs Temperature 36.6 C 06/09/24 09:07 Pulse Rate 105 H 06/09/24 09:07 Respiratory Rate 16 06/09/24 09:07 Blood Pressure 118/77 06/09/24 09:07 Pulse Oximetry 06/09/24 09:07 Temperature 36.6 C 06/09/24 09:07 Pulse Rate 105 H 06/09/24 09:07 Respiratory Rate 16 06/09/24 09:07 Blood Pressure 118/77 06/09/24 09:07 Pulse Oximetry 06/09/24 09:07 Reviewed MDM - URI/Sore Throat MDM Narrative Medical decision making narrative: Pt well hydrated appearing, in no respiratory distress, hemodynamically stable. Recommend supportive care. The patient is stable at time of discharge the clinical impression was discussed and the patient was given the opportunity to ask questions, which were addressed as completely as possible given the information available at present. Anticipatory guidance and return to care precautions were discussed and the importance of primary care follow-up was stressed and encouraged. The patient voiced understanding of the plan, indications to return, and the need for follow-up. Differential diagnosis considered: Mcdowell virus, strep pharyngitis, allergic rhinitis, upper respiratory tract infection, sinusitis, rhinosinusitis, nasopharyngitis. viral pharyngitis, otitis media, otitis externa, otitis effusion, foreign body, cerumen impaction, viral syndrome, and influenza.? Exam findings show no acute concerns or changes; patient is non-toxic appearing and is in no distress.? Patient is appropriate for outpatient treatment and follow- up.? Medical Records Attestation: I reviewed the patient's medical records. Lab Data Attestation: I reviewed the patient's lab results. Discharge Plan Discharge Clinical Impression: Upper respiratory infection with cough and congestion Patient Disposition: Home, Self-Care Condition: Stable Instructions: Upper Respiratory Infection (ED) Additional Instructions: Take antibiotic as prescribed. Take steroids in the morning with food. Use Tessalon Perles as needed for cough. Use inhaler with spacer as needed. Other symptomatic treatments include: -Alternate Tylenol and Motrin per package directions for fever or pain: Tylenol 650-1000mg by mouth every 4-6 hours. Do not exceed 4000mg in 24 hours. Advil (Ibuprofen) 600 mg by mouth every 6 hours. Do not exceed 2400mg in 24 hours. 8 AM: Tylenol 11 AM: Ibuprofen 2 PM: Tylenol 5 PM: Ibuprofen 8 PM: Tylenol 11 PM: Ibuprofen 2 AM: Tylenol 5 AM: Ibuprofen -Antihistamine medication such as Benadryl at night and Zyrtec/Claritin/Maritza during the day can help improve symptoms. -Use Flonase twice a day for 5 days then daily to help reduce the inflammation and dry up your sinuses. -You can also use Sudafed or Mucinex. Be sure to drink plenty of water with these medications at least 8 ounces with every dose and it is important to drink 8 to 10 glasses of water per day. Water is a natural decongestant -Eat and drink things that are easy to swallow, like tea or soup, or popsicles. -Oral rinses such as: Salt water gargles and/or may use topical anesthetic (eg. Chloraseptic spray) or lozenges to relieve dryness or throat pain). -Frequent hand washing or hand business office representative is one of the best ways to prevent spr ead of infection. -Using a vaporizer or humidifier at night will also help thin secretions and help with coughing up phlegm. -Follow up with primary care provider in 3-5 days if condition is not improving - For new or worsening symptoms go directly to the nearest ER Patient Language: Yi Prescriptions: New prednisone 20 mg tablet 40 mg PO DAILY 5 Days Qty: 10 0RF amoxicillin 875 mg tablet 875 mg PO Q12H 7 Days Qty: 14 0RF benzonatate 100 mg capsule 100 mg PO BID PRN (Reason: cough) Qty: 14 0RF No Action olmesartan 20 mg tablet 20 mg PO DAILY Qty: 90 3RF levothyroxine 150 mcg tablet 150 mcg PO DAILY Qty: 90 1RF allopurinol 300 mg tablet 300 mg PO DAILY Qty: 90 1RF Follow-up/Referrals: Tiffanie Rutledge MD [Primary Care Provider] - 3 Days Stand Alone Forms: Work/School Release IP Time of Disposition: 09:57
[2024-06-09 09:07] VITALS: BP 118/77; PULSE 105; RESP 16; TEMP 36.6; O2SAT 100
== END 2024-06-09 10:00 | disposition home or self-care (01) ==
PROVIDERS: Emergency Provider Nurse Practitioner Family; PCP Family Medicine
DX: J06.9 Acute upper respiratory infection, unspecified (principal); I10 Essential (primary) hypertension; E03.9 Hypothyroidism, unspecified; E78.5 Hyperlipidemia, unspecified
CPT/HCPCS: 99213; G0463

== ENCOUNTER 2024-07-05 00:30 | Day surgery (SDC) | payer OTHER, SELFPAY ==
[2024-06-22 15:53] VITALS: BMI 36.9
[2024-07-05 06:47] VITALS: BP 123/76; PULSE 93; RESP 18; TEMP 36.2; O2SAT 98; BMI 39.0
--- NOTE | 2024-07-05 07:04 | WPDANESEPPF ---
Anes - Initial Pre Proc Eval Procedure: Operation Date: 07/05/24 08:00 Proposed Procedures p Screening Colonoscopy - Jakub De La Cruz MD Date/Time: 07/05/24 07:04 Surgeon: Jakub De La Cruz MD Pre Op Diagnosis: screening malignant neoplasm of colon Patient Data Age: 49 Gender: M Height: 1.85 m Weight: 134.3 kg Last Vital Signs Temp 36.2 C L 07/05/24 06:47 Pulse 93 07/05/24 06:47 Resp 18 07/05/24 06:47 BP 123/76 07/05/24 06:47 Pulse Ox 98 07/05/24 06:47 O2 Del Method Room Air 07/05/24 06:47 Allergies Allergy/AdvReac Type Severity Reaction Status Date / Time No Known Allergies Allergy Verified 07/05/24 06:54 Home Medications ?Medication ?Instructions ?Recorded ?Confirmed ?Type olmesartan 20 mg tablet 20 mg PO DAILY #90 tabs 03/08/24 07/05/24 Rx levothyroxine 150 mcg tablet 150 mcg PO DAILY #90 tabs 04/20/24 07/05/24 Rx allopurinol 300 mg tablet 300 mg PO DAILY #90 tabs 04/22/24 07/05/24 Rx olopatadine 0.1 % eye drops 1 drp EACH EYE BID #5 mL 06/15/24 07/05/24 Rx (Pataday Twice Daily Relief) Patient hx anesthesia problems: none Family hx anesthesia problems: none Results Review: All pre-operative results and documents have been reviewed as part of the pre-operative evaluation. [facility] Past Medical History Medical History Essential hypertension Left shoulder pain Adhesive capsulitis of shoulder Asthma Right renal stone (~06/2018) Right ureteral stone (~03/2022) HTN (hypertension) improved with weight loss Dyslipidemia Right bundle branch block Diverticulitis (~12/2018) Hypothyroid Gout Surgical History Surgical History Hx of lithotripsy (~02/2024) left History of nasal septoplasty (~2014) Family History Family History Mother Acute myocardial infarction Unknown Asthma Hypertension Lung disease Arthritis Social History Social History Social History: Caffeine- coffee Smoking status: Never smoker Alcohol intake: never Substance use: never Substance use type: does not use Do You Feel Safe in your Home?: Yes Lack of Transportation: No Lack of Food: Never True Current Housing: I Have Housing Concerned About Future Housing: No Difficulty Paying Gas/Electric Bills: No Difficulty Paying for Meds: No Currently Unemployed: No Education: Master's Degree or Higher Difficulty w/ Childcare or Family Care: No Living arrangements: with family Additional living arrangements comments: & CHILDREN 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: occupation 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 Gender identity (if verbalized by the patient): Male Sexual Orientation (if Verbalized by the Patient): Straight or Heterosexual Spiritual care concerns: No Agree to blood products: Yes Anes - Eval Final PreProcedure Day of Procedure 07/05/24 07:04 Patient weight: obese Heart: regular rate and rhythm Lungs: clear to auscultation Airway: Mallampati scale class II Neurological: alert and oriented Last oral intake: >/= 8 hours ASA classification: III Emergent: no Anesthetic plan: proceed Anesthesia type and monitoring: general GIVS and standard monitoring Results Review: All pre-operative results and documents have been reviewed as part of the pre-operative evaluation. Informed Consent: The patient's anesthetic plan and its attendant risks and benefits were discussed with the patient/family/POA. Questions were solicited and answers provided to the satisfaction of the patient/family/POA.
[2024-07-05] MEDS: LACTATED RINGERS 1,000 ML 150 ML IV CONT (07:06)
--- NOTE | 2024-07-05 08:17 | PM.IMHP ---
H&P: HPI History of Present Illness Date/Time: 07/05/24 08:17 Chief Complaint: Screening colonoscopy Narrative: This is the patient's first colonoscopy. There are no GI symptoms and there is no family history of colorectal cancer. Review of Systems Review of Systems: All systems reviewed & are unremarkable except as noted in HPI and below PMFSH Past Medical History Medical History Essential hypertension Left shoulder pain Adhesive capsulitis of shoulder Asthma Right renal stone (~06/2018) Right ureteral stone (~03/2022) HTN (hypertension) improved with weight loss Dyslipidemia Right bundle branch block Diverticulitis (~12/2018) Hypothyroid Gout Surgical History Surgical History Hx of lithotripsy (~02/2024) left History of nasal septoplasty (~2014) Family History Family History Mother Acute myocardial infarction Unknown Asthma Hypertension Lung disease Arthritis Social History Social History Social History: Caffeine- coffee Smoking status: Never smoker Alcohol intake: never Substance use: never Substance use type: does not use Do You Feel Safe in your Home?: Yes Lack of Transportation: No Lack of Food: Never True Current Housing: I Have Housing Concerned About Future Housing: No Difficulty Paying Gas/Electric Bills: No Difficulty Paying for Meds: No Currently Unemployed: No Education: Master's Degree or Higher Difficulty w/ Childcare or Family Care: No Living arrangements: with family Additional living arrangements comments: & CHILDREN 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: occupation 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 Gender identity (if verbalized by the patient): Male Sexual Orientation (if Verbalized by the Patient): Straight or Heterosexual Spiritual care concerns: No Agree to blood products: Yes Meds Home Medications and Allergies Home Medications ?Medication ?Instructions ?Recorded ?Confirmed ?Type olmesartan 20 mg tablet 20 mg PO DAILY #90 tabs 03/08/24 07/05/24 Rx levothyroxine 150 mcg tablet 150 mcg PO DAILY #90 tabs 04/20/24 07/05/24 Rx allopurinol 300 mg tablet 300 mg PO DAILY #90 tabs 04/22/24 07/05/24 Rx olopatadine 0.1 % eye drops 1 drp EACH EYE BID #5 mL 06/15/24 07/05/24 Rx (Pataday Twice Daily Relief) Allergies Allergy/AdvReac Type Severity Reaction Status Date / Time No Known Allergies Allergy Verified 07/05/24 06:54 Vital Signs Vital Signs - 24 hr 07/05/24 06:47 Temperature 97.1 F L Pulse Rate 93 Respiratory Rate 18 Blood Pressure 123/76 Pulse Oximetry 98 Oxygen Delivery Room Air Exam Const: General: cooperative and healthy appearing Resp: Effort & Inspection: normal respiratory effort and able to speak in complete sentences Auscultation: clear to auscultation bilaterally Cardio: Rate: regular rate Rhythm: regular rhythm GI: Inspection: normal to inspection GI Palp: No No hepatosplenomegaly present Auscultation: normal bowel sounds Rectal Exam: deferred Skin: General skin exam: normal color Psych: Appearance: grossly normal Mental Status: mental status grossly normal Assessment and Plan Assessment and plan (1) Encounter for screening colonoscopy: Code(s): Z12.11 - Encounter for screening for malignant neoplasm of colon Status: Acute Assessment and Plan: This is the patient's first colonoscopy. There are no GI symptoms and there is no family history of colorectal cancer.
[2024-07-05 08:42] VITALS: BP 125/102; PULSE 74; RESP 23; O2SAT 95
[2024-07-05 08:52] VITALS: BP 102/61; PULSE 69; RESP 14; O2SAT 96
[2024-07-05 09:02] VITALS: BP 115/74; PULSE 77; RESP 21; O2SAT 97
== END 2024-07-05 09:19 | disposition home or self-care (01) ==
PROVIDERS: PCP Family Medicine; Referring Provider Nurse Practitioner Family; Visit Provider Internal Medicine Gastroenterology
PROC: 0DJD8ZZ Inspection of Lower Intestinal Tract, Via Natural or Artificial Opening Endoscopic (ICD-10-PCS; CPT 45378; principal; 2024-07-05 08:00)
DX: Z12.11 Encounter for screening for malignant neoplasm of colon (principal); K57.30 Diverticulosis of large intestine without perforation or abscess without bleeding; K64.8 Other hemorrhoids; E66.9 Obesity, unspecified; Z68.39 Body mass index [BMI] 39.0-39.9, adult
CPT/HCPCS: 45378; J2003; J2704; J7120

== ENCOUNTER 2024-10-02 17:43 | Emergency (ER) | payer OTHER, SELFPAY ==
[2024-10-02 17:52] VITALS: BP 114/73; PULSE 89; RESP 16; TEMP 36.2; O2SAT 100
--- NOTE | 2024-10-02 17:54 | ED.GENADULT ---
HPI - General Adult General Chief complaint: Dental/Oral Stated complaint: EARACHE/JAW PAIN Time Seen by Provider: 10/02/24 17:54 Source: patient, RN notes reviewed and old records reviewed Mode of arrival: ambulatory Limitations: no limitations History of Present Illness HPI narrative: 49-year-old male presents to the [facility] with complaints of a left-sided earache and left-sided jaw pain that has been increasing over the last week. patient reports he did see his dental provider on Friday, was told he needed dental work, does have an appointment on Friday for further evaluation. Patient reports that he had x-rays of his teeth done and they did not find any abnormalities. Patient denies any chest pain, shortness of breath. No nausea or vomiting. Onset (ago): week(s) (1) Related Data Allergies Allergy/AdvReac Type Severity Reaction Status Date / Time No Known Allergies Allergy Verified 10/02/24 18:05 Review of Systems Review of Systems: All systems reviewed & are unremarkable except as noted in HPI and below Constitutional: Constitutional: Reports no additional constitutional complaints ENT: Reports as per HPI Cardiovascular: Cardiovascular: Reports no additional cardiovascular complaints, Denies chest pain and Denies dyspnea Respiratory: Respiratory: Reports no additional respiratory complaints, Denies chest congestion, Denies cough and Denies dyspnea Musculoskeletal: Musculoskeletal: Reports no additional musculoskeletal complaints Integumentary/Breasts: Skin/Breast: Reports system reviewed and no additional complaints, except as docu PMFSH Past Medical History Medical History Essential hypertension Left shoulder pain Adhesive capsulitis of shoulder Asthma Right renal stone (~06/2018) Right ureteral stone (~03/2022) HTN (hypertension) improved with weight loss Dyslipidemia Right bundle branch block Diverticulitis (~12/2018) Hypothyroid Gout Surgical History Surgical History Hx of lithotripsy (~02/2024) left History of nasal septoplasty (~2014) Family History Family History Mother Acute myocardial infarction Unknown Asthma Hypertension Lung disease Arthritis Social History Social History Social History: Caffeine- coffee Smoking status: Never smoker Alcohol intake: never Substance use: never Substance use type: does not use Do You Feel Safe in your Home?: Yes Lack of Transportation: No Lack of Food: Never True Current Housing: I Have Housing Concerned About Future Housing: No Difficulty Paying Gas/Electric Bills: No Difficulty Paying for Meds: No Currently Unemployed: No Education: Master's Degree or Higher Difficulty w/ Childcare or Family Care: No Living arrangements: with family Additional living arrangements comments: & CHILDREN 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: occupation 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 There is no relevant family history pertinent to the patient complaint. Exam Const: General: cooperative, healthy appearing, comfortable, no acute distress, well developed, alert and well nourished Nutritional Appearance: well nourished Orientation/consciousness: patient oriented x3 Limitations: no limitations HENMT: Head: normal to inspection Ears: hearing grossly normal bilaterally, external ears normal, TM's normal bilaterally, EAC's normal, mastoids normal and no periauricular adenopathy Face/Nose/Sinus: Normal external nose present, Normal nares present and No nasal discharge present Face and sinus: normal facial exam, sinuses nontender and face symmetric Mouth: Yes Normal oral and palatal mucosa present, Yes lip normal, Yes tongue normal and Yes moist mucous membranes Teeth and gingiva: dentition normal, caries and fair dentition Throat: posterior oropharynx normal, uvula midline and no uvular edema Eyes: General: appearance normal, both eyes and all related structures Alignment and Position: alignment normal Neck: Neck: normal visual inspection, full ROM, no lymphadenopathy and no meningeal signs Chest: Chest palpation & inspection: normal inspection of the chest Resp: Effort & Inspection: normal respiratory effort and able to speak in complete sentences Cardio: Rate: regular rate Skin: General skin exam: normal color and no rashes or lesions noted Neuro: General: patient oriented x3, gait normal, moves all extremities and no meningeal signs Cognition (Neuro): normal cognition Speech: normal speech Gait exam (Neuro): Normal gait present Extrem: General: normal to inspection, full ROM, capillary refill normal and normal gait Psych: Appearance: grossly normal and well kempt Mental Status: mental status grossly normal Speech and movement: Normal speech and movement present and Clear speech present Affect: normal affect Attitude: cooperative Course Course Level of Care: Express Care Visit Vital Signs Vital signs: Vital Signs Temperature 97.1 F L 10/02/24 17:52 Pulse Rate 89 10/02/24 17:52 Respiratory Rate 16 10/02/24 17:52 Blood Pressure 114/73 10/02/24 17:52 Pulse Oximetry 100 10/02/24 17:52 Temperature 97.1 F L 10/02/24 17:52 Pulse Rate 89 10/02/24 17:52 Respiratory Rate 16 10/02/24 17:52 Blood Pressure 114/73 10/02/24 17:52 Pulse Oximetry 100 10/02/24 17:52 Reviewed Medical Decision Making MDM Narrative Medical decision making narrative: Patient sitting in exam room. Patient is nontoxic, vitals stable. Patient presents with jaw pain without chest pain, shortness of breath. No nausea vomiting. Had followed up with a dental provider, will see 1 on Friday as well. No acute findings noted on exam. Patient is appropriate for outpatient treatment with close follow-up Discharge instructions reviewed with patient, as well as provided in writing per nursing staff. The instructions also include specific and strict return/GO TO THE ER as well as f/u information. All questions have been answered, and the patient deny any further questions with discharge and discharge plan. Some parts of this dictation were generated by voice recognition software and may contain typographical and/or grammatical inaccuracies. Differential Diagnosis Differential Diagnosis: dental abscess, dental caries, otitis media, otitis externa, serous otitis. TMJ. Medical Records Medical records reviewed: Yes I reviewed the external patient's medical records. Vital Signs Vital Signs: Vital Signs Temperature 97.1 F L 10/02/24 17:52 Pulse Rate 89 10/02/24 17:52 Respiratory Rate 16 10/02/24 17:52 Blood Pressure 114/73 10/02/24 17:52 Pulse Oximetry 100 10/02/24 17:52 Temperature 97.1 F L 10/02/24 17:52 Pulse Rate 89 10/02/24 17:52 Respiratory Rate 16 10/02/24 17:52 Blood Pressure 114/73 10/02/24 17:52 Pulse Oximetry 100 10/02/24 17:52 Reviewed Lab Data Lab results reviewed: Yes I reviewed the patient's lab results. Labs: Reviewed Critical Care Time Critical Care Time Critical Care Time: No Discharge Plan Discharge Clinical Impression: Pain in lower jaw Patient Disposition: Home Condition: Stable Instructions: Antibiotic Form, Temporomandibular Disorder (ED) Additional Instructions: Eat soft foods follow-up with dental providers already scheduled on Friday follow-up with primary care provider new or worsening symptoms please go directly to the emergency room Patient Language: Telugu Prescriptions: No Action olmesartan 20 mg tablet 20 mg PO DAILY Qty: 90 3RF cyclobenzaprine 10 mg tablet 10 mg PO TID PRN (Reason: muscle spasm) Qty: 30 0RF levothyroxine 150 mcg tablet 150 mcg PO DAILY Qty: 90 1RF allopurinol 300 mg tablet 300 mg PO DAILY Qty: 90 1RF olopatadine [Pataday Twice Daily Relief] 0.1 % drops 1 drp EACH EYE BID Qty: 5 0RF Rx Instructions: separate doses by at least 6-8 hours Follow-up/Referrals: Tiffanie Rutledge MD [Primary Care Provider] - 1 Week (express care follow up ) Stand Alone Forms: Work/School Release IP Time of Disposition: 18:15
== END 2024-10-02 18:19 | disposition home or self-care (01) ==
PROVIDERS: Emergency Provider Nurse Practitioner; PCP Family Medicine
DX: R68.84 Jaw pain (principal); I10 Essential (primary) hypertension; J45.909 Unspecified asthma, uncomplicated; E78.5 Hyperlipidemia, unspecified; E03.9 Hypothyroidism, unspecified; M10.9 Gout, unspecified
CPT/HCPCS: 99211; G0463

== ENCOUNTER 2025-04-14 12:01 | Emergency (ER) | payer OTHER, SELFPAY ==
--- NOTE | ~2025-04-14 | XR_ITS ---
EXAMINATION: XR chest 2V, 04/14/2025 12:14 MORTGAGE FIELD INSPECTOR HISTORY: productive cough/sob/fever x4days COMPARISON: No comparisons available. Technique: 2 views obtained. Findings: The lungs are clear, no effusion. No pneumothorax. Heart is normal size. Mediastinal and hilar contours are within normal limits. Bony thorax no acute abnormality. Impression: No acute cardiopulmonary abnormality. Reviewed, dictated and finalized at location P. GAGE FIELD INSPECTOR Impression: No acute cardiopulmonary abnormality.
--- NOTE | 2025-04-14 12:04 | ED_ITS ---
HPI - URI/Sore Throat General Chief Complaint: Upper Respiratory Infection Stated Complaint: Cough Time Seen by Provider: 04/14/25 12:04 Source: patient Mode of arrival: ambulatory Limitations: no limitations History of Present Illness HPI Narrative: Zach is a 49-year-old male patient presenting to the clinic today with complaints of productive cough with yellow brown/phlegm, shortness of breath, sore throat, fever, and chest congestion x3 days. Highest fever was 103.3F. Has taken mucinex and tylenol for his symptoms. Denies any chest pain. Related Data Allergies Allergy/AdvReac Type Severity Reaction Status Date / Time No Known Allergies Allergy Verified 10/02/24 18:05 Review of Systems Review of Systems: Pertinent positives per HPI. Patient denies any rash, headache, visual changes, dizziness, chest pain, palpitations, nausea, vomiting, diarrhea, constipation, abdominal pain, or any urinary issues. [facility] Past Medical History Medical History Essential hypertension Left shoulder pain Adhesive capsulitis of shoulder Asthma Right renal stone (~06/2018) Right ureteral stone (~03/2022) HTN (hypertension) improved with weight loss Dyslipidemia Right bundle branch block Diverticulitis (~12/2018) Hypothyroid Gout Surgical History Surgical History Hx of lithotripsy (~02/2024) left History of nasal septoplasty (~2014) Family History Family History Mother Acute myocardial infarction Unknown Asthma Hypertension Lung disease Arthritis Social History Social History Social History: Caffeine- coffee Smoking status: Never smoker Alcohol intake: never Substance use: never Substance use type: does not use Lack of Transportation: No Lack of Food: Never True Current Housing: I Have Housing Concerned About Future Housing: No Difficulty Paying Gas/Electric Bills: No Difficulty Paying for Meds: No Currently Unemployed: No Education: Master's Degree or Higher Difficulty w/ Childcare or Family Care: No Living arrangements: with family Additional living arrangements comments: & CHILDREN 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: occupation 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 There is no relevant family history pertinent to the patient complaint. Exam Narrative: General: Well-developed, obese, in no apparent distress Head: Normocephalic, atraumatic Eyes: Pupils equally round and reactive to light bilaterally, EOM intact, sclera and conjunctive clear, no discharge, lids normal Ears: TMs intact and clear, ear canals clear, no drainage, grossly hearing normal. Nose: Nares patent, clear discharge, mild inflammation, no sinus tenderness. Mouth: Oral pharynx red with postnasal drip without lesions or masses, good dentition, MMM. Neck: Supple, trachea midline, no enlargement of anterior or posterior cervical nodes, no thyroid masses or goiter palpable. Cardio: Regular rate and rhythm, s1 and s2 normal, no murmur appreciated. Resp: Crackles heard over the left mid zone of the lungs, no rhonchi, wheezing or rubs Course Course Level of Care: Express Care Visit Vital Signs Vital signs: Vital Signs Temperature 36.4 C 04/14/25 12:06 Pulse Rate 72 04/14/25 12:06 Respiratory Rate 16 04/14/25 12:06 Blood Pressure 100/64 04/14/25 12:06 Pulse Oximetry 100 04/14/25 12:06 Oxygen Delivery Room Air 04/14/25 12:06 Temperature 36.4 C 04/14/25 12:06 Pulse Rate 72 04/14/25 12:06 Respiratory Rate 16 04/14/25 12:06 Blood Pressure 100/64 04/14/25 12:06 Pulse Oximetry 100 04/14/25 12:06 Oxygen Delivery Room Air 04/14/25 12:06 [facility] MDM Narrative Medical decision making narrative: At the time of visit patient is resting comfortably on the exam table. Patient appears to be nontoxic. Complaints of productive cough with yellow brown/phlegm, shortness of breath, sore throat, fever, and chest congestion x3 days. Highest fever was 103.3F. Has taken mucinex and tylenol for his symptoms. Denies any chest pain. On exam patient has bilateral TMs intact and clear, some clear nasal drainage, mild anterior turbinate inflammation, oropharynx red with postnasal drip, lungs crackles over the left mid lung zones posteriorly, heart rates regular rate and rhythm. COVID, flu, and chest x-ray was ordered. Labs: COVID and influenza testing was performed and negative in the clinic today. Diagnostics: Chest x-ray is negative for any acute cardiopulmonary process. Plan: I suspect patient has acute purulent bronchitis/questionable a typical pneumonia. Prescription for azithromycin, prednisone, and albuterol inhaler was sent to the pharmacy. Supportive measures were discussed with the patient and they voiced understanding discharge instructions and agrees to treatment plan. Return precautions reviewed Differential Diagnosis Differential Diagnosis: Differential diagnostic considerations for upper respiratory infection include upper respiratory infection, croup, otitis media, sinusitis, viral infection, bronchitis, influenza, pharyngitis, strep, uvulitis. Lab Data Labs: Lab Results 04/14/25 Range/Units 12:22 POC Influenza A Ag Negative (Negative) POC Influenza B Ag Negative (Negative) POC SARS CoV-2 Ag Negative (Negative) Imaging Data Radiologist's impression: ITS Impressions Chest X-Ray 04/14/25 12:20 Impression: No acute cardiopulmonary abnormality. Discharge Plan Discharge Clinical Impression: Purulent bronchitis Patient Disposition: Home Condition: Stable Instructions: Antibiotic Form, Acute Bronchitis (ED) Additional Instructions: Chest x-rays negative for any acute cardiopulmonary process. Take prescription medications only as prescribed-prednisone, azithromycin, and albuterol inhaler Increase fluids and stay well hydrated May take Tylenol or motrin as directed on bottle for pain/fever May use Flonase 1 spray in each nare daily May take OTC antihistamines such as Zyrtec or Claritin daily as directed on bottle May apply Vicks vapor rub to chest to open sinuses Sinus rinses for congestion Cepacol spray, cough drops, throat lozenges, warm tea with honey/lemon, gargle salt water to soothe throat BRAT diet for diarrhea Clear liquids x 24 hours then advance as tolerated for nausea/vomiting Go to the ED if you develop a worsening in your condition- high fever not controlled by Tylenol or Motrin, dehydration, weakness, lethargy, shortness of breath, or chest pain. Follow up with your PCP in 3-5 days if symptoms persist. Patient Language: Egyptian Prescriptions: New azithromycin 250 mg tablet See Rx Instructions .ROUTE .COMPLEX Qty: 6 0RF Rx Instructions: For 250 mg dose pack: take 500 mg today (day 1), then 250 mg for 4 days (days 2-5) prednisone 20 mg tablet 40 mg PO DAILY 5 Days Qty: 10 0RF albuterol sulfate 90 mcg/actuation HFA aerosol inhaler 2 puff inhalation Q4-6H PRN (Reason: shortness of breath or wheezing) 30 Days Qty: 8.5 0RF No Action olmesartan 20 mg tablet 20 mg PO DAILY Qty: 90 3RF olopatadine [Pataday Twice Daily Relief] 0.1 % drops 1 drp EACH EYE BID Qty: 5 0RF Rx Instructions: separate doses by at least 6-8 hours levothyroxine 150 mcg tablet 150 mcg PO DAILY Qty: 90 1RF allopurinol 300 mg tablet 300 mg PO DAILY Qty: 90 1RF Follow-up/Referrals: Tiffanie Rutledge MD [Primary Care Provider, Family Practice] Stand Alone Forms: Work/School Release IP Time of Disposition: 12:25 Quality NIHSS Nursing Documentation ED NIHSS nursing documentation: reviewed/agree
[2025-04-14 12:06] VITALS: BP 100/64; PULSE 72; RESP 16; TEMP 36.4; O2SAT 100
[2025-04-14 12:24] LABS: EDCOVIDSCREEN Negative (Negative); EDINFLUASCREEN Negative (Negative); EDINFLUBSCREEN Negative (Negative)
== END 2025-04-14 12:35 | disposition home or self-care (01) ==
LOC: EXPGOSH 12:51
PROVIDERS: Emergency Provider Nurse Practitioner Family; PCP Family Medicine
DX: J40 Bronchitis, not specified as acute or chronic (principal); Z20.822 Contact with and (suspected) exposure to COVID-19; I10 Essential (primary) hypertension; E78.5 Hyperlipidemia, unspecified; E03.9 Hypothyroidism, unspecified; M10.9 Gout, unspecified; J45.909 Unspecified asthma, uncomplicated
CPT/HCPCS: 71046; 87426; 87804; 99213; G0463